=== PATIENT | female | born 1930 | race Caucasian/White ===

== ENCOUNTER 2017-08-01 11:22 | Day surgery (SDC) | payer MEDICARE ==
[~2017-08-01] VITALS: Ht 162.6 cm; Wt 55.1 kg
[~2017-08-01 11:22] MED LIST: ASPI81 PO; CEPH250C PO; DARV PO; LASI20TA PO; LOSA25TA31 PO; METO50TA PO; POTA-243 PO; ROSU20 PO
[2017-08-01] MEDS ORDERED: IOHEXOL 350 MG/ML 10 ML VIAL (for RAD DIAG) IVCONTRAST ONE (11:23)
[2017-08-01] MEDS ORDERED: IOHEXOL 350 MG/ML 100 ML BTL (for Cath Lab) OTHER ONE (11:23)
[2017-08-01 12:13] LABS: AUTOMATED NEUTROPHIL # 3.4 TH/MM3 (1.8-7.7); BASOPHIL % 0.8 % (0.0-2.0); EOSINOPHIL # 0.1 TH/MM3 (0-0.4); EOSINOPHIL % 1.7 % (0.0-4.0); HEMATOCRIT 36.1 % (35.0-46.0); HEMO FLAGS DIFF FINAL; LYMPH % 28.1 % (9.0-44.0); LYMPHOCYTE # 1.6 TH/MM3 (1.0-4.8); MEAN CELL VOLUME 95.9 FL (80.0-100.0); MEAN CORPUSCULAR HEMOGLOBIN 32.3 PG (27.0-34.0); MEAN CORPUSCULAR HGB CONC 33.6 % (32.0-36.0); MONO % 9.9 % (0.0-8.0); NEUT % 59.5 % (16.0-70.0); PLATELET COUNT 133 TH/MM3 (150-450); RED BLOOD COUNT 3.76 MIL/MM3 (4.00-5.30); RED CELL DISTRIBUTION WIDTH 14.5 % (11.6-17.2); WHITE BLOOD COUNT 5.6 TH/MM3 (4.0-11.0)
[2017-08-01 12:16] VITALS: BP 129/50; PULSE 69; RESP 18; TEMP 98.5; O2SAT 99
[2017-08-01 12:25] LABS: APTT (PATIENT) 24.5 SEC (24.3-30.1); INTERNATIONAL NORMALIZED RATIO 1.1 RATIO; PROTHROMBIN TIME - PATIENT 11.3 SEC (9.8-11.6)
[2017-08-01] MEDS ORDERED: KLOR20TA3 PO (12:26)
[2017-08-01] MEDS ORDERED: CENTCHW3 PO (12:26)
[2017-08-01] MEDS ORDERED: OCUVTAB4 PO (12:26)
[2017-08-01] MEDS ORDERED: FLAX1000 PO (12:26)
[2017-08-01] MEDS ORDERED: DONE10TA7 PO (12:26)
[2017-08-01] MEDS ORDERED: FURO20TA PO (12:26)
[2017-08-01] MEDS ORDERED: ASPI81CH6 CHEW (12:26)
[2017-08-01] MEDS ORDERED: ATOR80TA45 PO (12:26)
[2017-08-01] MEDS ORDERED: CLOP75TA PO (12:26)
[2017-08-01] MEDS ORDERED: EXEM25TA PO (12:26)
[2017-08-01] MEDS ORDERED: METO25TA3 PO (12:26)
[2017-08-01 12:32] LABS: BICARBONATE 32.7 MEQ/L (21.0-32.0); POTASSIUM 4.3 MEQ/L (3.5-5.1)
[2017-08-01] MEDS ORDERED: HEPARIN-NS/PF INJ 1,000 ML ONE (12:43)
[2017-08-01] MEDS ORDERED: NITROGLYCERIN INJ 5 ML ONE (12:48)
[2017-08-01] MEDS ORDERED: VERAPAMIL HCL 5 MG/2 ML VIAL ONE (12:49)
[2017-08-01] MEDS ORDERED: HEPARIN SODIUM - IV 10,000 UNITS/10 ML VIAL ONE (12:49)
--- NOTE | 2017-08-01 12:49 | PD.FRAIL ---
Date: Aug 01, 2017 Height: 162.56 cm Weight: 55.1 kg BMI: 20.9 Assessment Performed: Outpatient Albumin 08/01/17 11:50: Blood Urea Nitrogen 29, Creatinine 1.20, Random Glucose 92, Albumin 3.2, Calcium Level 8.9, Sodium Level 144, Potassium Level 4.3, Chloride Level 107, Carbon Dioxide Level 32.7 Pass/Fail: Fail Rodriguez Activities Daily Living Rodriguez ADL Score: Bathing(bathes self/help in single area): [place] (1), Dressing(gets/puts clothes on self): [place] (1), Toileting(goes without help): [place] ( 1), [facility] [place] (1), Continence( complete self-control): [place] (0), Feeding(self, prep by another allowed): [place] (1), Total: 5 Pass/Fail: Pass Almond Huller Strength Grasp 1: 2 Grasp 2: 2 Grasp 3: 4 Average: 3.3 Pass/Fail: Fail 15-Foot Walk 15-Foot Walk (seconds): 10.2 Pass/Fail: Fail (unsteady on feet and SOB during 15ft walk) Total Frailty Total Frailty (out of 4): 3 Frailty Index Score Reference Almond Huller Strength: BMI: <=23 Cutoff for paper sealer strength(Kg): <=17 BMI: 23.1-26 Cutoff for paper sealer strength(Kg): <=17.3 BMI: 26.1-29 Cutoff for paper sealer strength(Kg): <=18 BMI: >29 Cutoff for paper sealer strength(Kg): <=21 15-Foot Walk: Height: <=159 cm 15-Foot Walk Cutoff Time: >=7 seconds Height: >159 cm 15-Foot Walk Cutoff Time: >=6 seconds Maryam Tan RN Aug 01, 2017 12:49
[2017-08-01] MEDS ORDERED: MIDAZOLAM HCL 2 MG/2 ML VIAL ONE (13:18)
[2017-08-01 13:41] LABS: BLOOD, URINE NEG (NEG); COMMENT (UR) CULT NOT INDICATED; CULTURE IF INDICATED CULT NOT INDICATED; GLUCOSE,URINE NEG (NEG); KETONE, URINE NEG (NEG); MUCUS URINE FEW /lpf (OCC); NITRITE,URINE NEG (NEG); PH, URINE 7.5 (5.0-8.5); SQUAMOUS EPITHELIAL CELL URINE <1 /hpf (0-5); URINE COLOR YELLOW (YELLW/STRAW)
--- NOTE | 2017-08-01 14:18 | CATHPROC ---
[facility] [place] HIS Report Study Information Study Number Admission Scheduled Start Study Start [id number] Aug 01 2017 11:22AM 08/01/2017 Aug 01 2017 12:35PM [place] [facility] Cardiac Catheterization Admit Source Facility Department Other [facility] - Corporate Meeting Planner Physician and Clinical Staff Initial MD Ojeda, Frederick Mineral Mixer Usman RN, Buck RecordCecile Gardner,RT(R) (BS) Scrub Irma Zendejas,REEL SLITTER TECH2 Procedures Performed Procedure Location (Site) Vessel Name Coronary Angiograms LCA Left Coronary Coronary Angiograms RCA Right Coronary Coronary Angiograms SVG-DIAG Left Coronary Coronary Angiograms SVG-DIAG 1 Left Coronary Coronary Angiograms SVG-LAD Left Coronary Coronary Angiograms SVG-RCA Right Coronary L Heart Cath Equipment Time Central Office Repairer Supervisor Description Size Mfg Part Number Used/Scraped MYNX WRAPPING MACHINE TENDER CLOSURE DEVICE [id number] 14:00 ACCESS CLOSURE INC. FR 5 Used TAVR *[id number] TAVR TRANSDUCER, TRUWAVE [id number] 12:48 THOMAS MCCRARY * Used W/STOCKCOCK *[id number] INTRODUCER SET, 13:46 COOK INC. FR 5 [id number] *[id number] Used MICROPUNCTURE, STIFFENED [id number] *[id number] 534-521T *[id number] 534-542T *[id number] 534-570T *[id number] 12:48 [email or web address] INDUSTRIES PACK, CCL CUSTOM * Used *[id number] 12:48 SanFran[employer]O SUPPORT, ARTERIAL ADULT [id number] *[id number] Used [id number] 13:31 MEDTRONIC AL 1 DXTERITY CATHETER FR 5 Used *[id number] 12:58 MEDTRONIC JL 3.5 DXTERITY CATHETER FR 5 [id number] Used BAND, RADIAL COMPRESSION TR [id number] 13:58 [employer] MEDICAL 24CM Used SHORT 24 *[id number] 12:48 [employer] MEDICAL WIRE, 3MMJ .035 180CM 180CM Used *[id number] 12:48 NAMIC MANIFOLD, 4 PORT * Used *[id number] 12:48 NYCOMED OMNIPAQUE, 350 MG, 150ML 150ML [id number] Used [id number] 12:48 MONTERO MEDICAL BLANKET,WARM AIR CCL * Used *[id number] 13:46 TERUMO MEDICAL SHEATH, FR5 TERUMO (10CM) FR 5 Used *[id number] SHEATH, FR6 TRANSRADIAL [id number] 12:48 [employer] FR 6 Used SLENDER 10CM *[id number] Equipment Model, Serial, Lot Number and Expiration Data Description Model Number Serial Number Lot Number Expiration Date INTRODUCER SET, [id number] 06-07-2020 MICROPUNCTURE, STIFFENED History: Current Medications Medication Dosage/Unit Route Frequency Last Date/Time Taken Beta Temo Statins (any) ASA PLAVIX History: Allergies Allergy Reaction neomycin bacitracin gramicidin D polymyxin B History: Risk Factors Family History of Hypertension Dyslipidemia Previous [facility] Previous Heart Failure Premature CAD No No No No No Prior Valve Prior PCI Prior CABG Prior CABGDate Surgery No No Yes 03/31/2009 Cerebrovascular Peripheral Artery Chronic Lung On Dialysis Diabetes Disease Disease Disease No No No No No History: Stress Tests Stress or Imaging Studies Performed No History: Other Current Smoker No Labs Hgb (g/dl) Hct (%) WBC (l/cumm) Platelets (thousands) 11.60-17.00 35.00-51.00 4.00-11.00 150.00-450.00 12.1 36.1 5.6 133 Glucose (mg/dl) BUN (mg/dl) Creatinine (mg/dl) BUN:Creatinine (1:x) 74.00-106.00 7.00-18.00 0.50-1.30 10.00-20.00 92 29 1.2 24.2 Na (meq/l) K (meq/l) 136.00-145.00 3.50-5.10 144 4.3 INR (PTT:PT) 0.90-1.10 1.1 CPK-MB (ng/ML) 0.50-3.60 Not Drawn Medication Medication Total Dose (Bolus/Oral) Medication Total Dosage/Unit 1% XYLOCAINE 21 mL FENTANYL 50 mcg RADIAL COCKTAIL 1 units VERSED 2 mg Medications (Bolus/Oral) Medication Time Given Dosage/Unit Administered By Reason 1% XYLOCAINE 08/01/2017 1:16:36 PM 1 mL Mercado-Rebeca, Frederick 1 mL 1% XYLOCAINE given in lab by Jess-Rebeca Frederick in Right Radial via Subcutaneous. Ntg 200mcg Verapamil 2.5mg Heparin RADIAL COCKTAIL 08/01/2017 1:18:18 PM 1 units Mercado-Rebeca, Frederick 3000U 1 units RADIAL COCKTAIL given in lab by Rusty Frederick in Right Radial via Radial. Reason: Ntg 200 mcg Verapamil 2.5mg Heparin 3000U. FENTANYL 08/01/2017 1:19:35 PM 25 mcg Usman MORGAN, Buck 25 mcg FENTANYL given in lab by Usman MORGAN, Buck in Left Antecubital via Peripheral IV. VERSED 08/01/2017 1:20:48 PM 1 mg Usman MORGAN, Buck 1 mg VERSED given in lab by Usman MORGAN, Buck in Left Antecubital via Peripheral IV. FENTANYL 08/01/2017 1:31:07 PM 12.5 mcg Usman MORGAN, Buck 12.5 mcg FENTANYL given in lab by Usman MORGAN, Buck in Left Antecubital via Peripheral IV. VERSED 08/01/2017 1:33:39 PM 1 mg Usman MORGAN, Buck 1 mg VERSED given in lab by Usman MORGAN, Buck in Left Antecubital via Peripheral IV. 1% XYLOCAINE 08/01/2017 1:46:31 PM 20 mL Jess-Frida Josero 20 mL 1% XYLOCAINE given in lab by Frederick Ojeda in Right Groin via Subcutaneous. FENTANYL 08/01/2017 1:47:40 PM 12.5 mcg Usman MORGAN, Buck 12.5 mcg FENTANYL given in lab by Buck Mary RN in Left Antecubital via Peripheral IV. Medication (Drip) Medication Time Given Dosage/Unit Concentration/Unit Diluent (ml) Solution 08/01/2017 12:35:16 IV Solutions 0 mL (IV) 500 NaCl .9 PM IV Solutions given in lab by Buck Mary RN in Left Antecubital via Peripheral IV. Pump/Drip Flow = 30 ml/hr using NaCl .9. Initial Case Assessment Cardiovascular HR Rhythm NIBP 71 reg 114/34 Edema Present Skin color Skin None Normal Warm Dry Circulatory - Right Pulses Dorsalis Pedis Femoral Radial 1 1 1 Scale (0,1,2,3,4,d) Scale (0,1,2,3,4,d) Circulatory - Lower Extremities Color Lower Right Color Lower Left Normal Normal Neurological State Oriented to time-place- Alert Moves all extremities person Respiration - General Respiration Rate SpO2 (%) (B/min) 14 99 Chronological Log Time Study Chronological Log 12:34:55 Patient arrived via Bed. 12:35:05 Patient Name, D.O.B, / Armband Verified By Costa. 12:35:06 Consent signed by the physician and the patient and verified by the Corporate Meeting Planner staff. 12:35:07 Pre-op and post- op instructions given; patient acknowledges understanding of instructions. 12:35:09 Patient has been NPO for More than 6Hrs. 12:35:10 Skin Breakdown - bruising on bilateral buttox, red blanched coccyx 12:35:12 Patient Warmer Placed on the Table. 12:35:15 A # 20 IV was noted in the Antecubital (left). Grade = 0 IV Solutions given in lab by Buck Mary RN in Left Antecubital via Peripheral IV. Pump/Drip F low = 30 ml/hr using NaCl 12:35:16 .9. 12:35:16 History and physical on the chart or being dictated. 12:46:41 Reference ECG taken Vitals capture started with the following parameters, Patient=Adult, Interval=5 min, Initial Pr jsjcdz=031 mmHg, 12:47:05 Deflation Rate=5 mmHg, Cuff placed on Left Arm 12:47:43 HR=72 bpm, KUFV=502/34 mmhg, SpO2=99.0 %, Resp=18 B/min, Pain=0, Kristopher=10, Sal=2 Assessment: Initial Case, HR=71 BPM, Rhythm=reg, NNWU=879/34 mmhg, Edema=None, Color=Normal, Sk in = Warm, Dry Right Pulses: Cooper Ped=1, Femoral=1, Radial=1 12:51:09 Lower Right Extremities: Color=Normal Lower Left Extremities: Color=Normal Neurological: State=Alert, Ox3, BYRD Respiration: Resp=14 B/min, SpO2=99 % 12:52:10 Right Radial and right groin prepped with 2% chlorhexidine, and draped after a 3 min. waiti ng time. 12:52:43 HR=69 bpm, WKQO=008/37 mmhg, SpO2=99.0 %, Resp=15 B/min, Pain=0, Kristopher=10, Sal=2 12:56:27 Pressure channel 1 zeroed. 12:57:39 HR=70 bpm, JTYB=670/33 mmhg, SpO2=99.0 %, Resp=14 B/min, Pain=0, Kristopher=10, Sal=2 12:59:03 paged 13:02:41 HR=71 bpm, RNGO=179/35 mmhg, SpO2=99.0 %, Resp=14 B/min, Pain=0, Kristopher=10, Sal=2 13:04:38 MD responded 13:07:40 HR=71 bpm, NOEC=251/41 mmhg, SpO2=98.0 %, Resp=17 B/min, Pain=0, Kristopher=10, Sal=2 13:12:43 HR=71 bpm, AYCM=915/39 mmhg, SpO2=99.0 %, Resp=17 B/min, Pain=0, Kristopher=10, Sal=2 13:13:44 MD arrived Time Out. Correct patient, correct procedure, correct physician, power injector not loaded with contrast with surgical 13:16:21 team present. Time Out Concurred by MD and individual staff in procedure. 13:16:31 Case Start 13:16:36 1 mL 1% XYLOCAINE given in lab by Frederick Ojeda in Right Radial via Subcutaneous. 13:17:43 Access site was right Radial Artery. A SHEATH, FR6 TRANSRADIAL SLENDER 10CM FR 6 was advanced into the Radial (right) using the Perc utaneous 13:17:56 technique. 1 units RADIAL COCKTAIL given in lab by Frederick Ojeda in Right Radial via Radial. Reason: N tg 200mcg Verapamil 13:18:18 2.5mg Heparin 3000U. 13:18:27 HR=76 bpm, TCPA=111/36 mmhg, SpO2=99.0 %, Resp=32 B/min, Pain=0, Kristopher=10, Sal=2 A JR 4.0 INFINITI CATHETER FR 5 was advanced over a wire. OMNIPAQUE, 350 MG, 150ML 150ML was us ed for 13:19:34 injections. 13:19:35 25 mcg FENTANYL given in lab by Buck Mary RN in Left Antecubital via Peripheral IV. Recorded Pressure: Ao, HR=72, Condition=Condition 1 13:20:20 (Aorta) Ao 106/34/64 13:20:48 1 mg VERSED given in lab by Buck Mary RN in Left Antecubital via Peripheral IV. 13:21:07 The RCA was injected and visualized at various angles. OMNIPAQUE, 350 MG, 150ML 150ML used . After removing the current catheter a JL 3.5 DXTERITY CATHETER FR 5 was advanced over a WIRE, 3 MMJ .035 180CM 13:22:42 180CM. 13:22:43 HR=74 bpm, NIBP=94/34 mmhg, SpO2=95.0 %, Resp=18 B/min, Pain=0, Kristopher=10, Sal=2 13:24:49 The LCA was injected and visualized at various angles. OMNIPAQUE, 350 MG, 150ML 150ML used . After removing the current catheter a MPA-2 INFINITI CATHETER FR 5 was advanced over a WIRE, 3M MJ .035 180CM 13:26:07 180CM. 13:27:16 The SVG-DIAG was injected and visualized at various angles. OMNIPAQUE, 350 MG, 150ML 150ML used. 13:27:40 HR=74 bpm, NIBP=89/33 mmhg, SpO2=96.0 %, Resp=22 B/min, Pain=0, Kristopher=10, Sal=2 13:27:45 The SVG-RCA was injected and visualized at various angles. OMNIPAQUE, 350 MG, 150ML 150ML u sed. 13:31:07 12.5 mcg FENTANYL given in lab by Buck Mary RN in Left Antecubital via Peripheral IV. After removing the current catheter a AL 1 DXTERITY CATHETER FR 5 was advanced over a WIRE, 3MM J .035 180CM 13:31:09 180CM. 13:32:39 HR=77 bpm, NIBP=89/39 mmhg, SpO2=96.0 %, Resp=33 B/min, Pain=0, Kristopher=10, Sal=2 13:33:39 1 mg VERSED given in lab by Buck Mary RN in Left Antecubital via Peripheral IV. After removing the current catheter a RCB INFINITI CATHETER FR 5 was advanced over a WIRE, 3MMJ .035 180CM 13:33:54 180CM. 13:36:00 The SVG-LAD was injected and visualized at various angles. OMNIPAQUE, 350 MG, 150ML 150ML u sed. After removing the current catheter a AR MOD INFINITI CATHETER FR 5 was advanced over a WIRE, 3 MMJ .035 180CM 13:37:04 180CM. 13:37:40 HR=75 bpm, SFBE=429/39 mmhg, SpO2=92.0 %, Resp=13 B/min, Pain=0, Kristopher=10, Sal=2 Recorded Pressure: LV, HR=76, Condition=Condition 1 13:42:38 (Left Ventricle) LV 161/7/21 13:42:43 HR=75 bpm, NIBP=89/41 mmhg, SpO2=91.0 %, Resp=17 B/min, Pain=0, Kristopher=10, Sal=2 Recorded Pressure: LV, Ao, HR=75, Condition=Condition 1 13:42:50 (Left Ventricle) LV 160/5/21, (Aorta) Ao 88/31/53 After removing the current catheter a MPA-2 INFINITI CATHETER FR 5 was advanced over a WIRE, 3M MJ .035 180CM 13:43:54 180CM. 13:45:53 Catheter was removed 13:46:01 Unable to engage graft. Moving to groin access. 13:46:31 20 mL 1% XYLOCAINE given in lab by Frederick Ojeda in Right Groin via Subcutaneous. 13:47:40 HR=74 bpm, NIBP=87/38 mmhg, SpO2=97.0 %, Resp=16 B/min, Pain=0, Kristopher=10, Sal=2 13:47:40 12.5 mcg FENTANYL given in lab by Buck Mary RN in Left Antecubital via Peripheral IV. 13:48:24 Access site was Right Femoral Artery. A INTRODUCER SET, MICROPUNCTURE, STIFFENED FR 5 was advanced into the Fem Art (right) using the 13:48:33 Percutaneous technique. A SHEATH, FR5 TERUMO (10CM) FR 5 was exchanged in the Fem Art (right). This was necessary in or soy to 13:48:39 accomodate a larger catheter. A MPA-2 INFINITI CATHETER FR 5 was advanced over a wire. OMNIPAQUE, 350 MG, 150ML 150ML was use d for 13:49:10 injections. 13:50:09 Catheter was removed A AL 1 DXTERITY CATHETER FR 5 was advanced over a wire. OMNIPAQUE, 350 MG, 150ML 150ML was used for 13:50:13 injections. 13:51:01 The SVG-DIAG and ramus was injected and visualized at various angles. contrast used. 13:52:41 HR=73 bpm, NIBP=93/39 mmhg, SpO2=96.0 %, Resp=22 B/min, Pain=0, Kristopher=10, Sal=2 13:56:57 Catheter was removed 13:57:42 HR=74 bpm, NIBP=88/32 mmhg, SpO2=97.0 %, Resp=29 B/min, Pain=0, Kristopher=10, Sal=2 13:59:02 MYNX WRAPPING MACHINE TENDER CLOSURE DEVICE TAVR FR 5 placement in the Fem Art (right) 14:01:03 Case End 14:01:11 DOCU called. Spoke to Myron 14:02:43 HR=71 bpm, NIBP=95/39 mmhg, SpO2=97.0 %, Resp=29 B/min, Pain=0, Kristopher=10, Sal=2 14:06:21 Pressure applied to access site. 14:07:30 No case complications noted. 14:07:34 Bedside Report will be given. 14:07:36 Implantable Device card placed in patient's chart. 14:07:39 A Left Heart Cath was performed. 14:07:44 HR=72 bpm, NIBP=97/40 mmhg, SpO2=97.0 %, Resp=19 B/min, Pain=0, Kristopher=10, Sal=2 14:10:00 Sterile dressing applied to site Radial Compression Device Used. 12 mLs of air placed in BAND, RADIAL COMPRESSION TR SHORT 24 24 CM. Affected 14:12:10 hand 97 % O2 saturation. 14:12:45 HR=75 bpm, YWRM=145/32 mmhg, SpO2=99.0 %, Resp=32 B/min, Pain=0, Kristopher=10, Sal=2 14:12:51 Vitals capture stopped. 14:16:32 Patient moved to stretcher End Study - Contrast Media Used In Study Contrast Total Opened (mL) Total Used (mL) Total Wasted (mL) Omnipaque 100 100 0 End Study - Maximum Contrast Load Max Contrast Load (mL) 229.5 End Study - Radiation Exposure Fluoro Time (minutes) 18.8 End Study - Sheaths Sheaths Pulled By Sheath Hold Time (min) Mercado-Rebeca, Frederick End Study - Patient Disposition Complications Transferred To Interventional Outcome No Corporate Meeting Planner Holding No attempt made
--- NOTE | 2017-08-01 17:22 | RADRPT ---
EXAM DATE/TIME: 08/01/2017 16:52 [facility] COMPARISON: No previous studies available for comparison. INDICATIONS : Evaluate for pneumonia. Preoperative chest xray- TAVR. MEDICAL HISTORY : None. SURGICAL HISTORY : Pacemaker. CABG. ENCOUNTER: Subsequent ACUITY: 1 day PAIN SCORE: 0/10 LOCATION: Bilateral chest FINDINGS: Lungs are hyperinflated. There is diffuse chronic appearing interstitial lung disease. Increased dens ity is seen throughout the right lung base. Heart is mildly enlarged. There is evidence of previous open heart surgery. Cardiac pacemaker is in p lace. CONCLUSION: 1. COPD. 2. Right basilar airspace disease. 3. Mild cardiomegaly status post CABG. 4. Cardiac pacemaker. Davi Grande MD on August 01, 2017 at 17:18 Board Certified Radiologist. This report was verified electronically.
--- NOTE | 2017-08-01 18:32 | MA ---
cc: MANJIT TROY DATE: 08/01/2017 DATE OF : 1930 PROCEDURE PERFORMED 1. Left heart catheterization. 2. Selective right and left coronary angiography preformed. 3. Selective saphenous vein graft angiography. 4. Left ventricular hemodynamics. INDICATION Preoperative evaluation for severe symptomatic aortic stenosis approach right transradial and right transfemoral. DESCRIPTION OF PROCEDURE Consent signed. The patient was brought into the cardiac optical laboratory mechanic in fasting state. The right wrist was prepped and draped in sterile fashion using 1% lidocaine for local anesthesia a micropuncture kit a 6-Georgian sheath was inserted into the right radial artery. Antispasmodic cocktail given then selective right and left coronary angiography was performed with a JR-4 and JL- 3.5 diagnostic catheters. Angiography was taken in multiple views that was followed by angiography of the saphenous vein graft. We engaged this at the right saphenous vein groin with multipurpose catheter. There was some difficulty engaging the other grafts given the coming from the radial approach for which we changed to a transfemoral port for this and using 1% lidocaine for local anesthesia a micropuncture kit a 5-Georgian she was inserted in right common femoral artery. Then selective graft angiography was performed with an AL-1 diagnostic catheters. Angiography was taken in multiple views. The patient tolerated the procedure well without complications. Estimated blood loss less than 10 cc, total contrast was 80 cc. The right groin access site was closed with a Minx and the wrist access site was closed with a TR band. RESULTS LEFT VENTRICLE The left ventricular pressure was 160/5 with LVEDP of 21. The aortic pressure was 88/31 with a mean of 53 with there was a significant gradient upon pullback from the left ventricle to aorta and consistent with severe aortic stenosis. ANGIOGRAPHIC RESULTS 1. Right coronary artery; Right coronary artery is a dominant vessel giving off the PDA is tortuous as minimal luminal irregularities and has SMILEY-III flow and no significant obstructive coronary artery disease. In the distal right coronary artery see and competitive flow coming from the graft. 2. Left main; Lung patent long patent is giving off the left circumflex artery, ramus and LAD vessel. 3. The left anterior descending is a transapical vessel. It has no significant obstructive lesions of the mid to proximal to midportion of the vessel is tortuous and his recent competitive flow four grafts. 4. The left circumflex artery is small and patent. 5. The ramus vessel is of prominent size is has minimal luminal irregularities and received blood flow from S7 completed plus of shortness of sustained graft and the sound that the LAD is giving off a high diagonal which is it has a lesion on the proximal segment of 70%. Graft angiography. 7. SVG to PDA is patent. 8. SVG to posterior lateral branch patent. 9. SVG Y graft to ramus and LAD patent. CONCLUSION Severe [place] vessel CAD with 4/4 graft patent to severe symptomatic aortic stenosis three elevated LVEDP. RECOMMENDATIONS The patient will go to go to for post cath care. She will need IV hydration the continue aggressive medical management for secondary prevention of CAD, Continue Aortic Stenosis work Up workup. Thank you. MD MARQUIS Rios/vijay /2:08 PM /5:38 PM [facility]
--- NOTE | 2017-08-02 10:15 | RADRPT ---
EXAM DATE/TIME: 08/01/2017 14:59 [facility] COMPARISON: No previous studies available for comparison. INDICATIONS : Evaluation for trans-aortic valve replacement. IV CONTRAST: 99 cc Omnipaque 350 (iohexol) IV RADIATION DOSE: 44.34 CTDIvol (mGy) MEDICAL HISTORY : Carcinoma, breast. Cardiovascular disease SURGICAL HISTORY : Mastectomy, left. ENCOUNTER: Initial ACUITY: 1 day PAIN SCALE: 0/10 LOCATION: chest TECHNIQUE: Volumetric scanning was performed using a multi-row detector CT scanner. The data was post processed with a variety of visualization algorithms including full volume maximum intensity projection, multi -planar sliding thin slab reformation, curved planar reformation, and surface rendering techniques. Using automated exposure control and adjustment of the mA and/or kV according to patient size, radiat ion dose was kept as low as reasonably achievable to obtain optimal diagnostic quality images. DIC OM format image data is available electronically for review and comparison. FINDINGS: CARDIAC: The coronary system is right dominant. Multivessel CABG with the graft emanating from the ascending t horacic aorta. There is a bypass to the distal RCA, distal LAD and a bifurcated bypass to the diagona l branches. Circumflex appears to be diminutive. AORTIC ROOT/VALVE: 3 aortic cusps are present with regional calcification. The aortic root measures 2.7 cm. Mid thoracic aorta measures 2.5 cm with no calcifications. THORACIC AORTA: Bovine configuration of the arch. No evidence of aneurysm, mural thrombus, dissection, mural calcifi cation, or stenosis. ABDOMINAL AORTA: No evidence of aneurysm, mural thrombus, dissection or stenosis. Scattered mural calcification CELIAC ARTERY: Celiac artery shows a high grade ostial stenosis but is otherwise patent. SMA: Superior mesenteric artery is widely patent. RIGHT RENAL ARTERY: Main and accessory right middle artery. Both are patent. LEFT RENAL ARTERY: Left renal artery is widely patent. RIGHT COMMON ILIAC: No evidence of aneurysm, mural thrombus, dissection, mural calcification, or stenosis. The common fe moral measures 7 mm. LEFT COMMON ILIAC: No evidence of aneurysm, mural thrombus, dissection, mural calcification, or stenosis. The common fe moral measures 6 mm. THORAX: Patient appears to have a right mastectomy with augmentation. Bilateral pleural effusions with mild a telectatic changes. Groundglass nodular density medially in the right apex. ABDOMEN: Cholelithiasis. Mild nodular appearance of the liver may represent early cirrhosis. Diverticular dise ase most prominent in the sigmoid colon without diverticulitis PELVIS: Pelvic viscera is intact. Wound packing or compression dressing over the right inguinal region CONCLUSION: 1. Path to the ascending thoracic aorta is widely patent with no significant stenosis. Both common fe moral arteries are patent and fairly symmetric. 2. Cholelithiasis. 3. Coronary artery bypass with graft emanating from the ascending thoracic aorta and anastomosing to the distal LAD, distal RCA and a bifurcated graft to the diagonal branches. Circumflex is diminutive. 4. Diverticular disease of the descending and sigmoid colon, most severe in the region of the sigmoid . Jovany Chatman MD on August 02, 2017 at 9:52 Board Certified Radiologist. This report was verified electronically.
--- NOTE | 2017-08-03 12:25 | EKG ---
Date Performed: 08/01/2017 Time Performed: 12:07:26 PTAGE: 87 years EKG: Sinus rhythm with 1st degree A-V block. Possible left atrial abnormality Left bundle branch block Abnormal ECG PREVIOUS TRACING : 09/22/2008 17.33 DOCTOR: Makenna An Interpretating Date/Time 08/03/2017 12:23:58
== END 2017-08-01 17:44 | disposition home or self-care (01) ==
LOC: HDOC 11:22 → HDIC 11:25 → HDOC 17:44
PROVIDERS: ATTEND Radiology Vascular & Interventional Radiology
DX: I25.10 Atherosclerotic heart disease of native coronary artery without angina pectoris (principal); I35.0 Nonrheumatic aortic (valve) stenosis; J44.9 Chronic obstructive pulmonary disease, unspecified; K80.20 Calculus of gallbladder without cholecystitis without obstruction; Z95.0 Presence of cardiac pacemaker; Z90.12 Acquired absence of left breast and nipple; Z85.3 Personal history of malignant neoplasm of breast; Z95.1 Presence of aortocoronary bypass graft; Z01.818 Encounter for other preprocedural examination; Z79.82 Long term (current) use of aspirin
CPT/HCPCS: 71010; 74174; 80048; 81001; 82040; 85025; 85610; 85730; 86077; 86850; 86870; 86880; 86900; 86901; 86902; 87641; 93005; 93459; 94010; 99152; 99153; C1760; C1769; C1893; G0269; J1644; J2250; J3010; Q9967

== ENCOUNTER 2017-08-30 15:31 | Inpatient (IN) | payer MEDICARE ==
[~2017-08-30] VITALS: Ht 162.6 cm; Wt 53.0 kg
[~2017-08-30 15:31] MED LIST changes: -ASPI81 PO; +ASPI81CH6 CHEW; +ATOR80TA45 PO; +CENTCHW3 PO; -CEPH250C PO; +CLOP75TA PO; -DARV PO; +DONE10TA7 PO; +EXEM25TA PO; +FLAX1000 PO; +FURO20TA PO; +KLOR20TA3 PO; -LASI20TA PO; -LOSA25TA31 PO; +METO25TA3 PO; -METO50TA PO; +OCUVTAB4 PO; -POTA-243 PO; -ROSU20 PO
[2017-08-30 15:33] VITALS: BP 116/50; PULSE 77; RESP 16; TEMP 99.2; O2SAT 99
--- NOTE | 2017-08-30 17:43 | PD ---
HPI Chief Complaint: Respiratory Distress Time Seen by Provider: 17:23 Travel History International Travel<30 days: No Contact w/Intl Traveler<30days: No Traveled to known affect area: No History of Present Illness HPI 87yo F presented to the ED for increased exertional SOB. Pt has a TAVR scheduled for 09/04/17, and her son reports that he is concerned about her CHF status due to her increasing exertional dyspnea. He states that he weighs her everyday and has noticed that she has gained several pounds. Son reports that she sleeps on several pillows at night or in a recliner, and cannot walk more than 5m without becoming SOB. Pt has significant medical history of CHF, aortic stenosis, breast cancer and dementia. Pt denies any chest pain, palpitations, lightheadness or dizziness. Pt was a poor historian due to her dementia; her son gave most of the HPI stated above. Modifying Factors: None Associated Signs & Symptoms: Worsening shortness of breath, dyspnea on exertion , gaining weight Risk Factors: History of cardiac issues, CHF, valvular heart disease PFSH Past Medical History Blood Disorders: No Anxiety: No Depression: No Cancer: Yes (R & L BREAST, LEFT MASECTOMY) Cardiovascular Problems: Yes High Cholesterol: Yes Chemotherapy: No Chest Pain: No Diabetes: No Gastrointestinal Disorders: No Glaucoma: No Hepatitis: No Hiatal Hernia: No Hypertension: Yes Immune Disorder: No Neurologic: No Psychiatric: No Reproductive: No Respiratory: No Integumentary: No Myocardial Infarction: Yes Radiation Therapy: No Thyroid Disease: No Past Surgical History AICD: No Arteriovenous Shunt: No Insulin Pump: No Joint Replacement: No Pacemaker: No Thoracic Surgery: Yes (CABG) Social History Alcohol Use: Yes (1 vodka/day) Tobacco Use: No Substance Use: Yes Allergies-Medications (Allergen,Severity, Reaction): Coded Allergies: bacitracin (Unverified Allergy, Unknown, 08/30/17) gramicidin D (Unverified Allergy, Unknown, 08/30/17) neomycin (Unverified Allergy, Unknown, 08/30/17) polymyxin B (Unverified Allergy, Unknown, 08/30/17) Reported Meds & Prescriptions Reported Meds & Active Scripts Active Reported Metoprolol Tartrate 25 Mg Tab 12.5 Mg PO BID Klor-Con M20 (Potassium Chloride Microencaps) 20 Meq Tab 20 Meq PO DAILY Furosemide 20 Mg Tab 20 Mg PO DAILY Flaxseed Oil (Flaxseed (Linseed)) 1,000 Mg Cap Unknown Dose PO DAILY Exemestane 25 Mg Tab 25 Mg PO DAILY Donepezil 10 Mg Tab 10 Mg PO HS Clopidogrel (Clopidogrel Bisulfate) 75 Mg Tab 75 Mg PO DAILY Centrum Silver (Multiple Vitamins W/ Minerals) 400 Mcg-250 Mcg Chw Unknown Dose PO DAILY Atorvastatin (Atorvastatin Calcium) 80 Mg Tab 80 Mg PO HS Aspirin Low Dose (Aspirin) 81 Mg Chew 81 Mg CHEW DAILY Review of Systems Except as stated in HPI: all other systems reviewed are Neg Physical Exam Exam Limitations: Poor Historian Narrative GENERAL: 87yo W/F that is well-developed. She is alert and oriented to person only. Poor historian due to dementia. SKIN: Warm and dry. HEAD: Atraumatic. Normocephalic. NECK: Trachea midline. Positive JVD. CARDIOVASCULAR: Regular rate and rhythm. 4/6 holosystolic ejection murmur. RESPIRATORY: No accessory muscle use. Left basilar rales and decreased breath sounds on R. GASTROINTESTINAL: Abdomen soft, non-tender, nondistended. Hepatic and splenic margins not palpable. MUSCULOSKELETAL: Extremities without clubbing, cyanosis, or edema. No obvious deformities. NEUROLOGICAL: Awake and alert. No obvious cranial nerve deficits. Motor grossly within normal limits. Normal speech. PSYCHIATRIC: Appropriate mood and affect; insight and judgment normal. Data Data Last Documented VS Vital Signs Date Time Temp Pulse Resp B/P (MAP) Pulse Ox O2 Delivery O2 Flow Rate FiO2 08/30/17 19:12 75 16 100 Nasal Cannula 2.00 08/30/17 19:11 105/50 (68) 08/30/17 15:33 99.2 Orders Orders Complete Blood Count With Diff (08/30/17 15:54) Basic Metabolic Panel (Bmp) (08/30/17 15:54) B-Type Natriuretic Peptide (08/30/17 15:54) Act Partial Throm Time (Ptt) (08/30/17 15:54) Prothrombin Time / Inr (Pt) (08/30/17 15:54) Magnesium (Mg) (08/30/17 15:54) Ckmb (Isoenzyme) Profile (08/30/17 15:54) Troponin I (08/30/17 15:54) Electrocardiogram (08/30/17 15:54) Chest, Pa & Lat (08/30/17 15:54) Furosemide Inj (Lasix Inj) (08/30/17 18:30) CKMB (08/30/17 17:45) CKMB% (08/30/17 17:45) Admit Order (Ed Use Only) (08/30/17 19:49) Labs Laboratory Tests Test 08/30/17 17:45 White Blood Count 8.2 TH/MM3 Red Blood Count 4.10 MIL/MM3 Hemoglobin 12.9 GM/DL Hematocrit 38.7 % Mean Corpuscular Volume 94.3 FL Mean Corpuscular Hemoglobin 31.4 PG Mean Corpuscular Hemoglobin Concent 33.3 % Red Cell Distribution Width 14.5 % Platelet Count 129 TH/MM3 Mean Platelet Volume 10.0 FL Neutrophils (%) (Auto) 70.4 % Lymphocytes (%) (Auto) 18.2 % Monocytes (%) (Auto) 10.2 % Eosinophils (%) (Auto) 0.7 % Basophils (%) (Auto) 0.5 % Neutrophils # (Auto) 5.8 TH/MM3 Lymphocytes # (Auto) 1.5 TH/MM3 Monocytes # (Auto) 0.8 TH/MM3 Eosinophils # (Auto) 0.1 TH/MM3 Basophils # (Auto) 0.0 TH/MM3 CBC Comment DIFF FINAL Differential Comment Prothrombin Time 11.4 SEC Prothromb Time International Ratio 1.1 RATIO Activated Partial Thromboplast Time 22.6 SEC Blood Urea Nitrogen 38 MG/DL Creatinine 1.45 MG/DL Random Glucose 103 MG/DL Calcium Level 8.9 MG/DL Magnesium Level 2.3 MG/DL Sodium Level 143 MEQ/L Potassium Level 4.8 MEQ/L Chloride Level 106 MEQ/L Carbon Dioxide Level 30.8 MEQ/L Anion Gap 6 MEQ/L Estimat Glomerular Filtration Rate 34 ML/MIN Total Creatine Kinase 723 U/L Creatine Kinase MB 6.3 NG/ML Creatine Kinase MB % 0.9 % Troponin I 0.12 NG/ML B-Type Natriuretic Peptide 1767 PG/ML MDM Medical Decision Making Medical Screen Exam Complete: Yes Emergency Medical Condition: Yes Medical Record Reviewed: Yes Interpretation(s) EKG shows sinus rhythm at a rate of 70 bpm with a left bundle branch block pattern unchanged from previous EKG. Laboratory Tests Test 08/30/17 17:45 Platelet Count 129 TH/MM3 (150-450) Neutrophils (%) (Auto) 70.4 % (16.0-70.0) Monocytes (%) (Auto) 10.2 % (0.0-8.0) Activated Partial Thromboplast Time 22.6 SEC (24.3-30.1) Blood Urea Nitrogen 38 MG/DL (7-18) Creatinine 1.45 MG/DL (0.50-1.00) Estimat Glomerular Filtration Rate 34 ML/MIN (>89) Total Creatine Kinase 723 U/L (26-192) Creatine Kinase MB 6.3 NG/ML (0.5-3.6) Troponin I 0.12 NG/ML (0.02-0.05) B-Type Natriuretic Peptide 1767 PG/ML (0-100) Last 24 hours Impressions Chest X-Ray 08/30/17 1554 Signed Impressions: Service Date/Time: Wednesday, August 30, 2017 16:08 - CONCLUSION: 1. Mild positive fluid balance. 2. Small bilateral pleural effusions and associated bilateral lower lobe compressive atelectasis. Rogelio Fountain MD Differential Diagnosis CHF exacerbation versus COPD exacerbation versus pneumonia Narrative Course Chest x-ray and lab work would be indicative of underlying exacerbation of CHF. Lasix was given in the ER. Planning to admit the patient for further treatment. Case was discussed with Dr. Ramos for admission. Diagnosis Primary Impression: CHF exacerbation Admitting Information Admitting Physician Requests: Admit Tory Resendiz MD Aug 30, 2017 17:43
--- NOTE | 2017-08-30 17:52 | RADRPT ---
EXAM DATE/TIME: 08/30/2017 16:08 [facility] COMPARISON: CHEST SINGLE AP, August 01, 2017, 16:52. INDICATIONS : Short of breath. MEDICAL HISTORY : Congestive heart failure. SURGICAL HISTORY : Pacemaker. CABG. ENCOUNTER: Initial ACUITY: 4 - 6 days PAIN SCORE: 0/10 LOCATION: Bilateral chest FINDINGS: Post surgical features of prior median sternotomy and heart surgery. Dual-lead pacemaker in place. Sm all bilateral pleural effusions and associated airspace disease at the lung bases. Mild diffuse inter stitial prominence. Cardiomediastinal contours are within normal limits. Remainder of the exam is unc hanged. CONCLUSION: 1. Mild positive fluid balance. 2. Small bilateral pleural effusions and associated bilateral lower lobe compressive atelectasis. Rogelio Fountain MD on August 30, 2017 at 17:49 Board Certified Radiologist. This report was verified electronically.
[2017-08-30 18:04] LABS: AUTOMATED NEUTROPHIL # 5.8 TH/MM3 (1.8-7.7); BASOPHIL % 0.5 % (0.0-2.0); EOSINOPHIL # 0.1 TH/MM3 (0-0.4); EOSINOPHIL % 0.7 % (0.0-4.0); HEMATOCRIT 38.7 % (35.0-46.0); HEMOGLOBIN 12.9 GM/DL (11.6-15.3); LYMPH % 18.2 % (9.0-44.0); LYMPHOCYTE # 1.5 TH/MM3 (1.0-4.8); MEAN CELL VOLUME 94.3 FL (80.0-100.0); MEAN CORPUSCULAR HEMOGLOBIN 31.4 PG (27.0-34.0); MEAN CORPUSCULAR HGB CONC 33.3 % (32.0-36.0); MONO % 10.2 % (0.0-8.0); MONOCYTE # 0.8 TH/MM3 (0-0.9); NEUT % 70.4 % (16.0-70.0); PLATELET COUNT 129 TH/MM3 (150-450); RED CELL DISTRIBUTION WIDTH 14.5 % (11.6-17.2); WHITE BLOOD COUNT 8.2 TH/MM3 (4.0-11.0)
[2017-08-30 18:23] LABS: INTERNATIONAL NORMALIZED RATIO 1.1 RATIO; PROTHROMBIN TIME - PATIENT 11.4 SEC (9.8-11.6)
[2017-08-30 18:26] LABS: BICARBONATE 30.8 MEQ/L (21.0-32.0); CALCIUM 8.9 MG/DL (8.5-10.1); CREATININE 1.45 MG/DL (0.50-1.00); MAGNESIUM 2.3 MG/DL (1.5-2.5)
[2017-08-30 18:30] LABS: TROPONIN I 0.12 NG/ML (0.02-0.05)
[2017-08-30] MEDS ORDERED: FUROSEMIDE 20 MG/2 ML VIAL IV PUSH ONE (18:30)
[2017-08-30 19:11] VITALS: BP 105/50; PULSE 76; RESP 16; O2SAT 100
[2017-08-30] MEDS ORDERED: SENNOSIDES 8.6 MG TAB PO PRN (20:00)
[2017-08-30] MEDS ORDERED: ACETAMINOPHEN/HYDROcodone 325 MG/5 MG TAB PO PRN (20:00)
[2017-08-30] MEDS ORDERED: LACTULOSE SYRUP 20 GM/30 ML CUP PO PRN (20:00)
[2017-08-30] MEDS ORDERED: MAGNESIUM HYDROXIDE SUSP 30 ML CUP PO PRN (20:00)
[2017-08-30] MEDS ORDERED: ACETAMINOPHEN 325 MG TAB PO PRN (20:00)
[2017-08-30] MEDS ORDERED: MORPHINE SULFATE 2 MG/ML INJ IV PUSH PRN (20:00)
[2017-08-30] MEDS ORDERED: SODIUM CHLORIDE 0.9% FLUSH 10 ML FLUSH IV FLUSH PRN (20:00)
[2017-08-30] MEDS ORDERED: ONDANSETRON HCL 4 MG/2 ML VIAL IVP PRN (20:00)
[2017-08-30] MEDS ORDERED: BISACODYL 10 MG SUPP RECTAL PRN (20:00)
--- NOTE | 2017-08-30 20:00 | HHI.HP ---
[facility]Staff Ad[facility] Diagnosis CHF exacerbation Diagnoses: (1) CHF (congestive heart failure) Diagnosis: Principal (2) Elevated troponin Diagnosis: Principal (3) Renal insufficiency Diagnosis: Principal (4) Severe aortic stenosis Diagnosis: Principal Travel History International Travel<30 Days: No Contact w/Intl Traveler <30 Da: No Traveled to Known Affected Are: No History of Present Illness This is an 87-year-old female with a PMH of Breast CTA, HTN, Hyperlipidemia, CHF (Unknown EF), CAD and Severe Aortic Stenosis who was brought to the ER by Son secondary to SOB x3 days. Much of the history provided by Son as pt poor historian. Son states pt having SOB, worse w/ exertion, severe, alleviated by rest. Recent Cardiac Cath 08/01/[address] Mercado w/ severe [place] vessel disease, patent grafts and severe aortic stenosis. Per Son, pt scheduled for Aortic Valve Replacement on Saturday. On arrival, BP 116/50, HR 77, O2 sat 99% on RA , Temp 99.2. CBC unremarkable except for platelets 129, previously 133 on 08/01. Creatinine 1.45, producing 1.20 on 08/01/17. Troponin 0.12. BNP 1767. INR 1.1. CXR with mild positive fluid balance, small bilateral pleural effusions. S/p Lasix 20mg IV Review of Systems Except as stated in HPI: all other systems reviewed are Neg ROS: 14 point review of systems otherwise negative. Past Family Social History Past Medical History PMH: Breast CTA, HTN, Hyperlipidemia, CHF (Unknown EF), CAD and Severe Aortic Stenosis Past Surgical History PAST SURGICAL HISTORY: CABG Allergies: Coded Allergies: bacitracin (Unverified Allergy, Unknown, 08/30/17) gramicidin D (Unverified Allergy, Unknown, 08/30/17) neomycin (Unverified Allergy, Unknown, 08/30/17) polymyxin B (Unverified Allergy, Unknown, 08/30/17) Family History PAST FAMILY HISTORY: Reviewed. No h/o DM or CAD Social History PAST SOCIAL HISTORY: One drink per day. Negative for tobacco or drugs. Physical Exam Vital Signs Vital Signs Date Time Temp Pulse Resp B/P (MAP) Pulse Ox O2 Delivery O2 Flow Rate FiO2 08/30/17 19:12 75 16 100 Nasal Cannula 2.00 08/30/17 19:11 76 16 105/50 (68) 100 08/30/17 17:38 68 16 93 Room Air 08/30/17 15:33 99.2 77 16 116/50 (72) 99 Physical Exam PE: GENERAL: Elderly white female in no acute distress, flat affect. Son at bedside. HEENT: PERRLA, EOMI. No scleral icterus or conjunctival pallor. No lid lag or facial droop. CARDIOVASCULAR: Regular rate and rhythm. No obvious murmurs to auscultation. No chest tenderness to palpation. RESPIRATORY: No obvious rhonchi or wheezing. Clear to auscultation. Breath sounds equal bilaterally. GASTROINTESTINAL: Abdomen soft, non-tender, nondistended. BS normal. MUSCULOSKELETAL: Extremities without clubbing, cyanosis, or edema. No obvious deformities. NEUROLOGICAL: Awake, alert. No focal neurologic deficits. Moving both upper and lower extremities spontaneously. Laboratory Laboratory Tests Test 08/30/17 17:45 White Blood Count 8.2 Red Blood Count 4.10 Hemoglobin 12.9 Hematocrit 38.7 Mean Corpuscular Volume 94.3 Mean Corpuscular Hemoglobin 31.4 Mean Corpuscular Hemoglobin Concent 33.3 Red Cell Distribution Width 14.5 Platelet Count 129 Mean Platelet Volume 10.0 Neutrophils (%) (Auto) 70.4 Lymphocytes (%) (Auto) 18.2 Monocytes (%) (Auto) 10.2 Eosinophils (%) (Auto) 0.7 Basophils (%) (Auto) 0.5 Neutrophils # (Auto) 5.8 Lymphocytes # (Auto) 1.5 Monocytes # (Auto) 0.8 Eosinophils # (Auto) 0.1 Basophils # (Auto) 0.0 CBC Comment DIFF FINAL Differential Comment Prothrombin Time 11.4 Prothromb Time International Ratio 1.1 Activated Partial Thromboplast Time 22.6 Blood Urea Nitrogen 38 Creatinine 1.45 Random Glucose 103 Calcium Level 8.9 Magnesium Level 2.3 Sodium Level 143 Potassium Level 4.8 Chloride Level 106 Carbon Dioxide Level 30.8 Anion Gap 6 Estimat Glomerular Filtration Rate 34 Total Creatine Kinase 723 Creatine Kinase MB 6.3 Creatine Kinase MB % 0.9 Troponin I 0.12 B-Type Natriuretic Peptide 1767 Result Diagram: 08/30/17174408/30/171744 Caprini VTE Risk Assessment Caprinmagnus VTE Risk Assessment: No/Low Risk (score <= 1) Johnnyrini Risk Assessment Model Point Value = 1 Point Value = 2 Point Value = 3 Point Value = 5 Age 41-60 Minor surgery BMI > 25 kg/m2 Swollen legs Varicose veins or History of unexplained or recurrent spontaneous Oral contraceptives or hormone replacement Sepsis (< 1 month) Serious lung disease, including pneumonia (< 1 month) Abnormal pulmonary function Acute myocardial infarction Congestive heart failure (< 1 month) History of inflammatory bowel disease Medical patient at bed rest Age 61-74 Arthroscopic surgery Major open surgery (> 45 min) Laparoscopic surgery (> 45 min) Malignancy Confined to bed (> 72 hours) Immobilizing plaster cast Central venous access Age >= 75 History of VTE Family history of VTE Factor V Leiden Prothrombin [id number] Lupus anticoagulant Anticardiolipin antibodies Elevated serum homocysteine Heparin-induced thrombocytopenia Other congenital or acquired thrombophilia Stroke (< 1 month) Elective arthroplasty Hip, pelvis, or leg fracture Acute spinal cord injury (< 1 month) Prophylaxis Regimen Total Risk Factor Score Risk Level Prophylaxis Regimen 0-1 Low Early ambulation 2 Moderate Order ONE of the following: *Sequential Compression Device (SCD) *Heparin 5000 units SQ BID 3-4 Higher Order ONE of the following medications: *Heparin 5000 units SQ TID *Enoxaparin/Lovenox 40 mg SQ daily (WT < 150 kg, CrCl > 30 mL/min) *Enoxaparin/Lovenox 30 mg SQ daily (WT < 150 kg, CrCl > 10-29 mL/min) *Enoxaparin/Lovenox 30 mg SQ BID (WT < 150 kg, CrCl > 30 mL/min) AND/OR *Sequential Compression Device (SCD) 5 or more Highest Order ONE of the following medications: *Heparin 5000 units SQ TID (Preferred with Epidurals) *Enoxaparin/Lovenox 40 mg SQ daily (WT < 150 kg, CrCl > 30 mL/min) *Enoxaparin/Lovenox 30 mg SQ daily (WT < 150 kg, CrCl > 10-29 mL/min) *Enoxaparin/Lovenox 30 mg SQ BID (WT < 150 kg, CrCl > 30 mL/min) AND *Sequential Compression Device (SCD) Assessment and Plan Problem List: (1) CHF (congestive heart failure) ICD Code: I50.9 - Heart failure, unspecified (2) Elevated troponin ICD Code: R74.8 - Abnormal levels of other serum enzymes (3) Renal insufficiency ICD Code: N28.9 - Disorder of kidney and ureter, unspecified (4) Severe aortic stenosis ICD Code: I35.0 - Nonrheumatic aortic (valve) stenosis Assessment and Plan A/P: 1. CHF: Unknown EF. BNP 1767. CXR w/ bilateral pleural effusions, images reviewed by me. S/p Lasix 20mg IV in ER. Caution w/ diuresis in light of renal insufficiency, Lasix 20mg IV bid. Monitor I/O. 2. Elevated Trop: Trop 0.12, no c/o chest pain, likely secondary to underlying CHF/Severe . Place on telemetry, check serial cardiac enzymes, ASA , Statin, resume home Metoprolol. 3. Severe : Following w/ Dr. Mercado, s/p Cardiac Cath 08/01/17 w/ severe Aortic Stenosis, scheduled for surgical intervention on Saturday. Consult Dr. Mercado for further recommendations. Resume home medications. 4. Renal Insufficiency: Acute on Chronic. Creatinine 1.45, previously 1.20 on 08/01/17, caution w/ diuresis, monitor I/O. 5. DVT Prophylaxis: SCD/Teds. 6. Social work for d/c planning as needed. 7. Case discussed w/ ER physician at length, plan of care discussed w/ Son, labs/records/imaging reviewed by me. Katlyn Ramos MD Aug 30, 2017 20:00
[2017-08-30 21:50] VITALS: BP 105/45; PULSE 80; RESP 16; TEMP 98.3; O2SAT 100
[2017-08-30] MEDS: METOPROLOL TARTRATE 25 MG TAB PO SCH (22:47)
[2017-08-30] MEDS: ATORVASTATIN 80 MG TAB PO SCH (22:47)
[2017-08-30] MEDS: SODIUM CHLORIDE 0.9% FLUSH 10 ML FLUSH IV FLUSH SCH (22:48)
[2017-08-30] MEDS: DONEPEZIL HCL 5 MG TAB PO SCH (22:48)
[2017-08-30] MEDS: DOCUSATE SODIUM 50 MG/SENNA 8.6 MG TAB PO SCH (22:48)
[2017-08-31] VITALS (9 sets, daily range): BP systolic 112–135; BP diastolic 52–61; PULSE 72–90; RESP 16–18; TEMP 96.1–98.2; O2SAT 98–100
[2017-08-31 06:37] LABS: ALBUMIN 3.1 GM/DL (3.4-5.0); BICARBONATE 25.8 MEQ/L (21.0-32.0); CALCIUM 8.8 MG/DL (8.5-10.1); CHLORIDE 104 MEQ/L (98-107); GLUCOSE,RANDOM 113 MG/DL (74-106); SODIUM (NA) 142 MEQ/L (136-145)
[2017-08-31 06:38] LABS: AST (GOT) 92 U/L (15-37); BLOOD UREA NITROGEN 38 MG/DL (7-18); CREATININE 1.56 MG/DL (0.50-1.00); GLOMERULAR FILTRATION RATE 31 ML/MIN (>89)
[2017-08-31 06:40] LABS: ALKALINE PHOSPHATASE 285 U/L (45-117); ALT (GPT) 84 U/L (10-53); TOTAL BILIRUBIN ADULT 0.7 MG/DL (0.2-1.0); TOTAL PROTEIN 6.6 GM/DL (6.4-8.2); TROPONIN I 0.13 NG/ML (0.02-0.05)
[2017-08-31 06:54] LABS: AUTOMATED NEUTROPHIL # 4.9 TH/MM3 (1.8-7.7); BASOPHIL % 0.7 % (0.0-2.0); EOSINOPHIL % 0.4 % (0.0-4.0); HEMATOCRIT 38.2 % (35.0-46.0); HEMOGLOBIN 12.8 GM/DL (11.6-15.3); LYMPH % 14.6 % (9.0-44.0); LYMPHOCYTE # 0.9 TH/MM3 (1.0-4.8); MEAN CELL VOLUME 93.1 FL (80.0-100.0); MEAN CORPUSCULAR HEMOGLOBIN 31.1 PG (27.0-34.0); MEAN CORPUSCULAR HGB CONC 33.4 % (32.0-36.0); MEAN PLATELET VOLUME 10.2 FL (7.0-11.0); MONO % 8.2 % (0.0-8.0); MONOCYTE # 0.5 TH/MM3 (0-0.9); NEUT % 76.1 % (16.0-70.0); PLATELET COUNT 97 TH/MM3 (150-450); RED CELL DISTRIBUTION WIDTH 14.6 % (11.6-17.2); WHITE BLOOD COUNT 6.5 TH/MM3 (4.0-11.0)
--- NOTE | 2017-08-31 07:46 | HHI.PR ---
Subjective Remarks in no acute distress. sob is better. denies chest pain. Objective Vitals Vital Signs Date Time Temp Pulse Resp B/P (MAP) Pulse Ox O2 Delivery O2 Flow Rate FiO2 08/30/17 21:50 98.3 80 16 105/45 (65) 100 08/30/17 21:22 08/30/17 19:12 75 16 100 Nasal Cannula 2.00 08/30/17 19:11 76 16 105/50 (68) 100 08/30/17 17:38 68 16 93 Room Air 08/30/17 15:33 99.2 77 16 116/50 (72) 99 Result Diagram: 08/31/17 0434 08/31/17 0425 Imaging Last Impressions Chest X-Ray 08/30/17 1554 Signed Impressions: Service Date/Time: Wednesday, August 30, 2017 16:08 - CONCLUSION: 1. Mild positive fluid balance. 2. Small bilateral pleural effusions and associated bilateral lower lobe compressive atelectasis. Rogelio Fountain MD Objective Remarks GENERAL: This is a well-nourished, well-developed patient, in no apparent distress. CARDIOVASCULAR: Regular rate and regular rhythm with systolic murmur aortic area RESPIRATORY: basal crackles GASTROINTESTINAL: Abdomen soft, non-tender, nondistended. Normal, active bowel sounds MUSCULOSKELETAL: Extremities without clubbing, cyanosis, or edema. NEURO: awake and alert- but not oriented to time or place. Medications and IVs Inpatient Medications Acetaminophen (Tylenol) 650 mg Q6H PRN PO FEVER/PAIN SCALE 1 TO 2; Start at 20:00 Acetaminophen/ Hydrocodone Bitart ([place] 5-325 Mg) 1 tab Q4H PRN PO PAIN SCALE 3 TO 5; Start 08/30/17 at 20:00 Aspirin (Aspirin Chew) 81 mg DAILY CHEW ; Start 08/31/17 at 09:00 Atorvastatin Calcium (Lipitor) 80 mg HS PO Last administered on 08/30/17at 22:47 ; Start 08/30/17 at 21:00 Bisacodyl (Dulcolax Supp) 10 mg DAILY PRN RECTAL SEVERE CONSITIPATION; Start at 20:00 Clopidogrel Bisulfate (Plavix) 75 mg DAILY PO ; Start 08/31/17 at 09:00 Donepezil HCl (Aricept) 10 mg HS PO Last administered on 08/30/17at 22:48; Start 08/30/17 at 21:00 Furosemide (Lasix Inj) 20 mg ONCE ONCE IV PUSH Last administered on 08/30/17at 18:40; Start 08/30/17 at 18:30; Stop 08/30/17 at 18:31; Status DC Lactulose (Lactulose Liq) 30 ml DAILY PRN PO SEVERE CONSITIPATION; Start at 20:00 Magnesium Hydroxide (Milk Of Magnesia Liq) 30 ml Q12H PRN PO Mild constipation ; Start 08/30/17 at 20:00 Metoprolol Tartrate (Lopressor) 12.5 mg BID PO Last administered on 08/30/17at 22:47; Start 08/30/17 at 21:00 Morphine Sulfate (Morphine Inj) 1 mg Q3H PRN IV PUSH Pain 6-10; Start 08/30/17 at 20:00 Ondansetron HCl (Zofran Inj) 4 mg Q6H PRN IVP NAUSEA OR VOMITING; Start at 20:00 Patient Own Medication PT OWN MED: (Exemest... DAILY PO ; Start 08/31/17 at 09: 00 Senna/Docusate Sodium (Pooja-Colace) 1 tab BID PO Last administered on at 22:48; Start 08/30/17 at 21:00 Sennosides (Senokot) 17.2 mg Q12H PRN PO Moderate constipation; Start 08/30/17 at 20:00 Sodium Chloride (NS Flush) 2 ml BID IV FLUSH Last administered on 08/30/17at 22: 48; Start 08/30/17 at 21:00 A/P Problem List: (1) CHF (congestive heart failure) ICD Code: I50.9 - Heart failure, unspecified (2) Elevated troponin ICD Code: R74.8 - Abnormal levels of other serum enzymes (3) Renal insufficiency ICD Code: N28.9 - Disorder of kidney and ureter, unspecified (4) Severe aortic stenosis ICD Code: I35.0 - Nonrheumatic aortic (valve) stenosis Assessment and Plan A/P 1. CHF: BNP 1767. CXR w/ bilateral pleural effusions. S/p Lasix 20mg IV in ER. Caution w/ diuresis in light of renal insufficiency, Lasix 20mg IV daily. Monitor I/O. 2. Elevated Trop: Trop 0.12, no c/o chest pain, likely secondary to underlying CHF/Severe . continue telemetry. ASA plavix , Statin, resumed home Metoprolol. cardiology consult. 3. Severe : Following w/ Dr. Mercado, s/p Cardiac Cath 08/01/17 w/ severe Aortic Stenosis, scheduled for surgical intervention on Saturday. Consulted Dr. Mercado for further recommendations. Resumed home medications. 4. Renal Insufficiency: Acute on Chronic. Creatinine 1.45, previously 1.20 on 08/01/17, caution w/ diuresis, monitor I/O and renal function. 5.thrombocytopenia- chronic- will monitor. 6. elevated LFT's- due to CHF?-will consider holding statin if LFT's trending up. will monitor. 7. DVT Prophylaxis: SCD/Teds. Lee Bennett MD Aug 31, 2017 07:46
[2017-08-31] MEDS ORDERED: FUROSEMIDE 20 MG/2 ML VIAL IV PUSH SCH (09:00)
[2017-08-31] MEDS ORDERED: EXEMESTANE 25 MG PO SCH (09:00)
[2017-08-31 09:20] LABS: OVALOCYTES 1+ (NORMAL)
[2017-08-31] MEDS: CLOPIDOGREL 75 MG TAB PO SCH (10:11)
[2017-08-31] MEDS: ASPIRIN 81 MG CHEW TAB CHEW SCH (10:11)
[2017-08-31] MEDS: DOCUSATE SODIUM 50 MG/SENNA 8.6 MG TAB PO SCH ×2 (10:11→20:45)
[2017-08-31] MEDS: METOPROLOL TARTRATE 25 MG TAB PO SCH ×2 (10:12→20:45)
[2017-08-31] MEDS: SODIUM CHLORIDE 0.9% FLUSH 10 ML FLUSH IV FLUSH SCH ×2 (10:12→20:49)
--- NOTE | 2017-08-31 11:11 | MB ---
cc: MARIA ELENA TREJO M.D. DATE OF CONSULTATION 08/31/2017 REASON FOR CONSULTATION Evaluation for CHF. HISTORY OF PRESENT ILLNESS Daisy Lindsay is an 87-year-old woman with known severe aortic stenosis who is now admitted with CHF. She has pleural effusions on her chest x-ray. Her family notes she has been having some increasing shortness of breath and chest pressure, clearly showing some deterioration. The patient has had previous bypass surgery. She does just had a recent cath with Dr. Mercado showing adequate revascularization. She has severe aortic stenosis. She has planned to have TAVR on Saturday. The patient came in because of increasing shortness of breath. MEDICATIONS Her list of medications are charted. 1. She is on aspirin. 2. Clopidogrel. 3. She is also on low-dose beta hedy. 4. 20 mg Lasix daily. PAST MEDICAL HISTORY 1. Calcific aortic stenosis. 2. Mild dementia. 3. Coronary artery disease with previous bypass surgery in 2008. 4. Mild carotid disease. 5. Previous hypertension. 6. Dual-chamber Medtronic pacemaker. 7. Breast cancer. PAST SURGICAL HISTORY 1. Breast biopsy on the right bypass. 2. Bypass surgery. 3. Pacemaker implant. ALLERGIES LATEX. FAMILY HISTORY Positive for COPD, heart disease in a brother and Parkinson's disease. SOCIAL HISTORY She has had about one Vodka drink daily. Former smoker; does not smoke now. REVIEW OF SYSTEMS Notable for some diminished appetite and diminished memory. Otherwise unremarkable. PHYSICAL EXAMINATION GENERAL: Physical exam reveals a thin elderly white female. She appears frail. VITAL SIGNS: Charted. HEENT: Exam unremarkable. NECK EXAM: I do not appreciate much JVD at this time. CHEST: Diminished breath sounds and dullness at the bases. CARDIAC: Exam shows normal S1, soft S2 and a severe grade 2-3/6 aortic stenosis murmur. ABDOMEN: Benign. EXTREMITIES: She has intact peripheral pulses. No peripheral edema. EKG AV paced rhythm. CHEST X-RAY Small bilateral effusions consistent with CHF. IMPRESSION 1. Severe aortic stenosis. 2. Stable CAD. 3. Mildly decompensated CHF. PLAN We will continue Lasix 20 IV b.i.d. Her creatinine is mildly elevated so we will hold her angiotensin hedy, beta-hedy is at very low dose. Continue aspirin and Plavix. MD SHANIKA Rincon/[place] /9:59 AM /10:47 AM
--- NOTE | 2017-08-31 16:39 | EKG ---
Date Performed: 08/30/2017 Time Performed: 17:15:07 PTAGE: 87 years EKG: Sinus rhythm LEFT ATRIAL ENLARGEMENT P wave synchronous ventricular pacing versus LEFT BUNDLE BRANCH BLOCK Since previous tracing, no significant change noted ABNORMAL ECG PREVIOUS TRACING : 08/01/2017 12.07 DOCTOR: Jaguar Donato Interpretating Date/Time 08/31/2017 16:38:53
--- NOTE | 2017-08-31 16:39 | EKG ---
Date Performed: 08/31/2017 Time Performed: 02:46:12 PTAGE: 87 years EKG: Sinus rhythm LEFT ATRIAL ENLARGEMENT P wave synchronous ventricular pacing LEFT BUNDLE BRANCH BLOCK Since previou s tracing, no significant change noted ABNORMAL ECG PREVIOUS TRACING : 08/30/2017 17.15 DOCTOR: Jaguar Donato Interpretating Date/Time 08/31/2017 16:37:58
[2017-08-31] MEDS: FUROSEMIDE 20 MG/2 ML VIAL IV PUSH SCH (17:43)
[2017-08-31] MEDS: EXEMESTANE 25 MG PO SCH (20:43)
[2017-08-31] MEDS: ATORVASTATIN 80 MG TAB PO SCH (20:44)
[2017-08-31] MEDS: DONEPEZIL HCL 5 MG TAB PO SCH (21:15)
[2017-09-01] VITALS (26 sets, daily range): BP systolic 110–142; BP diastolic 51–65; PULSE 63–90; RESP 16–20; TEMP 97.5–98.5; O2SAT 93–98
[2017-09-01 05:51] LABS: ALBUMIN 3.3 GM/DL (3.4-5.0); ALT (GPT) 86 U/L (10-53); AST (GOT) 90 U/L (15-37); BICARBONATE 21.2 MEQ/L (21.0-32.0); BLOOD UREA NITROGEN 51 MG/DL (7-18); CALCIUM 9.1 MG/DL (8.5-10.1); CHLORIDE 105 MEQ/L (98-107); CREATININE 1.81 MG/DL (0.50-1.00); GLOMERULAR FILTRATION RATE 27 ML/MIN (>89); GLUCOSE,RANDOM 138 MG/DL (74-106); SODIUM (NA) 137 MEQ/L (136-145)
[2017-09-01 05:59] LABS: ALKALINE PHOSPHATASE 298 U/L (45-117); TOTAL BILIRUBIN ADULT 0.7 MG/DL (0.2-1.0); TOTAL PROTEIN 7.1 GM/DL (6.4-8.2)
[2017-09-01] MEDS: METOPROLOL TARTRATE 25 MG TAB PO SCH ×2 (09:00→20:42)
[2017-09-01] MEDS: CLOPIDOGREL 75 MG TAB PO SCH (09:00)
[2017-09-01] MEDS: ASPIRIN 81 MG CHEW TAB CHEW SCH (09:00)
[2017-09-01] MEDS: DOCUSATE SODIUM 50 MG/SENNA 8.6 MG TAB PO SCH ×2 (09:00→20:43)
[2017-09-01] MEDS: SODIUM CHLORIDE 0.9% FLUSH 10 ML FLUSH IV FLUSH SCH ×2 (09:00→20:43)
--- NOTE | 2017-09-01 12:38 | HHI.PR ---
Subjective Remarks This is a pleasant 87 y/o Female with Breast Cancer, Hypertension, Hyperlipidemia, CHF, CAD and Severe Aortic Stenosis, brought in due to Shortness of breath, Recent Cardiac Cath 08/01/[address] Mercado w / severe [place] vessel disease, patent grafts and severe aortic stenosis. Per Son, pt scheduled for Aortic Valve Replacement on Saturday. she has Thrombocytopenia FABRICIO on CKD, CXR with mild positive fluid balance, small bilateral pleural effusions. Given Lasix in ER, seen in her bedroom in the presence of Nurse Mr. Miranda, her Son and Daughter in law. Objective Vital Signs Date Time Temp Pulse Resp B/P (MAP) Pulse Ox O2 Delivery O2 Flow Rate FiO2 09/01/17 06:01 86 09/01/17 05:02 74 09/01/17 04:38 81 09/01/17 03:45 98.2 86 20 142/65 (90) 95 09/01/17 03:33 67 09/01/17 02:03 77 09/01/17 01:03 84 09/01/17 00:17 73 08/31/17 23:30 97.8 88 18 135/60 (85) 98 08/31/17 23:30 78 08/31/17 22:15 72 08/31/17 21:30 72 08/31/17 20:15 76 08/31/17 19:29 99 Nasal Cannula 2.00 08/31/17 19:20 98.1 79 16 112/54 (73) 100 08/31/17 19:20 86 08/31/17 18:09 78 08/31/17 18:09 78 16 120/52 (74) 99 I/O 08/31/17 08/31/17 08/31/17 09/01/17 09/01/17 09/01/17 07:00 15:00 23:00 07:00 15:00 23:00 Intake Total 240 ml Output Total 100 ml Balance 140 ml Intake Oral 240 ml Output Urine Total 100 ml # Voids 1 # Bowel Movements 1 Result Diagram: 08/31/17 0434 09/01/17 0425 Imaging Last Impressions Chest X-Ray 08/30/17 0940 Signed Impressions: Service Date/Time: Wednesday, August 30, 2017 16:08 - CONCLUSION: 1. Mild positive fluid balance. 2. Small bilateral pleural effusions and associated bilateral lower lobe compressive atelectasis. Rogelio Fountain MD Procedures None Other Results Laboratory Tests Test 08/30/17 17:45 08/31/17 04:25 08/31/17 04:34 09/01/17 04:25 Prothrombin Time 11.4 SEC Prothromb Time International Ratio 1.1 RATIO Activated Partial Thromboplast Time 22.6 SEC Blood Urea Nitrogen 38 MG/DL 51 MG/DL Creatinine 1.45 MG/DL 1.81 MG/DL Random Glucose 103 MG/DL 138 MG/DL Calcium Level 8.9 MG/DL 9.1 MG/DL Magnesium Level 2.3 MG/DL Sodium Level 143 MEQ/L 137 MEQ/L Potassium Level 4.8 MEQ/L 4.5 MEQ/L Chloride Level 106 MEQ/L 105 MEQ/L Carbon Dioxide Level 30.8 MEQ/L 21.2 MEQ/L Total Creatine Kinase 723 U/L Creatine Kinase MB 6.3 NG/ML Creatine Kinase MB % 0.9 % B-Type Natriuretic Peptide 1767 PG/ML Troponin I 0.13 NG/ML White Blood Count 6.5 TH/MM3 Red Blood Count 4.10 MIL/MM3 Hemoglobin 12.8 GM/DL Hematocrit 38.2 % Mean Corpuscular Volume 93.1 FL Mean Corpuscular Hemoglobin 31.1 PG Mean Corpuscular Hemoglobin Concent 33.4 % Red Cell Distribution Width 14.6 % Platelet Count 97 TH/MM3 Mean Platelet Volume 10.2 FL Neutrophils (%) (Auto) 76.1 % Lymphocytes (%) (Auto) 14.6 % Monocytes (%) (Auto) 8.2 % Eosinophils (%) (Auto) 0.4 % Basophils (%) (Auto) 0.7 % Neutrophils # (Auto) 4.9 TH/MM3 Lymphocytes # (Auto) 0.9 TH/MM3 Monocytes # (Auto) 0.5 TH/MM3 Eosinophils # (Auto) 0.0 TH/MM3 Basophils # (Auto) 0.0 TH/MM3 CBC Comment AUTO DIFF Differential Comment AUTO DIFF CONFIRMED Platelet Estimate LOW Platelet Morphology Comment ENLARGED Ovalocytes 1+ Hematology Comments Total Protein 7.1 GM/DL Albumin 3.3 GM/DL Alkaline Phosphatase 298 U/L Aspartate Amino Transf (AST/SGOT) 90 U/L Alanine Aminotransferase (ALT/SGPT) 86 U/L Total Bilirubin 0.7 MG/DL Anion Gap 11 MEQ/L Estimat Glomerular Filtration Rate 27 ML/MIN Objective Remarks GENERAL: NO acute distress. pleasantly confused. HEENT: PERRLA, EOMI. No scleral icterus or conjunctival pallor. No lid lag or facial droop. CARDIOVASCULAR: Regular rate and rhythm. No obvious murmurs to auscultation. No chest tenderness to palpation. RESPIRATORY: No obvious rhonchi or wheezing. Clear to auscultation. Breath sounds equal bilaterally. GASTROINTESTINAL: Abdomen soft, non-tender, nondistended. BS normal. MUSCULOSKELETAL: Extremities without clubbing, cyanosis, or edema. No obvious deformities. NEUROLOGICAL: Awake, alert. No focal neurologic deficits. confused. Medications and IVs Current Medications Medications (Trade) Dose Ordered Sig/Farzaneh Route Start Time Stop Time Status Last Admin (NS Flush) 2 ml UNSCH PRN IV FLUSH 08/30/17 20:00 (NS Flush) 2 ml BID IV FLUSH 08/30/17 21:00 08/31/17 20:49 (Zofran Inj) 4 mg Q6H PRN IVP 08/30/17 20:00 (Tylenol) 650 mg Q6H PRN PO 08/30/17 20:00 ([place] 5-325 Mg) 1 tab Q4H PRN PO 08/30/17 20:00 (Morphine Inj) 1 mg Q3H PRN IV PUSH 08/30/17 20:00 (Pooja-Colace) 1 tab BID PO 08/30/17 21:00 08/31/17 20:45 (Milk Of Magnesia Liq) 30 ml Q12H PRN PO 08/30/17 20:00 (Senokot) 17.2 mg Q12H PRN PO 08/30/17 20:00 (Dulcolax Supp) 10 mg DAILY PRN RECTAL 08/30/17 20:00 (Lactulose Liq) 30 ml DAILY PRN PO 08/30/17 20:00 (Aspirin Chew) 81 mg DAILY CHEW 08/31/17 09:00 08/31/17 10:11 (Lipitor) 80 mg HS PO 08/30/17 21:00 08/31/17 20:44 (Plavix) 75 mg DAILY PO 08/31/17 09:00 08/31/17 10:11 (Aricept) 10 mg HS PO 08/30/17 21:00 08/31/17 21:15 (Lopressor) 12.5 mg BID PO 08/30/17 21:00 08/31/17 20:45 (Lasix Inj) 20 mg BID@,18 IV PUSH 08/31/17 18:00 08/31/17 17:43 Patient Own Medication PT OWN MED: (Exemest... HS PO 08/31/17 21:00 08/31/17 20:43 A/P Assessment and Plan 1. CHF: Unknown EF. BNP 1767. CXR w/ bilateral pleural effusions. 2. Equivocal Troponin elevation, continue Cardiac Enzymes, Aspirin 3. Severe : Following w/ Dr. Mercado, s/p Cardiac Cath 08/01/17 w/ severe Aortic Stenosis, scheduled for surgical intervention TAVR on Saturday, recommended to continue Lasix IV BID, on hold ARB. continue Aspirin and Plavix. 4. Renal Insufficiency: Acute on Chronic. Creatinine 1.45, previously 1.20 on 08/01/17 5. Elevated LFTs probable related to hepatic congestion. DVT Prophylaxis: SCD/Teds. Discharge Planning Once cleared by vision specialist. Jus Gastelum MD Sep 01, 2017 12:38
--- NOTE | 2017-09-01 15:42 | PD.CARD.PN ---
Subjective Subjective Remarks SOB improved Objective Medications Current Medications Medications (Trade) Dose Ordered Sig/Farzaneh Route Start Time Stop Time Status Last Admin (NS Flush) 2 ml UNSCH PRN IV FLUSH 08/30/17 20:00 (NS Flush) 2 ml BID IV FLUSH 08/30/17 21:00 08/31/17 20:49 (Zofran Inj) 4 mg Q6H PRN IVP 08/30/17 20:00 (Tylenol) 650 mg Q6H PRN PO 08/30/17 20:00 ([place] 5-325 Mg) 1 tab Q4H PRN PO 08/30/17 20:00 (Morphine Inj) 1 mg Q3H PRN IV PUSH 08/30/17 20:00 (Pooja-Colace) 1 tab BID PO 08/30/17 21:00 08/31/17 20:45 (Milk Of Magnesia Liq) 30 ml Q12H PRN PO 08/30/17 20:00 (Senokot) 17.2 mg Q12H PRN PO 08/30/17 20:00 (Dulcolax Supp) 10 mg DAILY PRN RECTAL 08/30/17 20:00 (Lactulose Liq) 30 ml DAILY PRN PO 08/30/17 20:00 (Aspirin Chew) 81 mg DAILY CHEW 08/31/17 09:00 08/31/17 10:11 (Lipitor) 80 mg HS PO 08/30/17 21:00 08/31/17 20:44 (Plavix) 75 mg DAILY PO 08/31/17 09:00 08/31/17 10:11 (Aricept) 10 mg HS PO 08/30/17 21:00 08/31/17 21:15 (Lopressor) 12.5 mg BID PO 08/30/17 21:00 08/31/17 20:45 (Lasix Inj) 20 mg BID@ IV PUSH 08/31/17 18:00 08/31/17 17:43 Patient Own Medication PT OWN MED: (Exemest... HS PO 08/31/17 21:00 08/31/17 20:43 Vital Signs / I&O Vital Signs Date Time Temp Pulse Resp B/P (MAP) Pulse Ox O2 Delivery O2 Flow Rate FiO2 09/01/17 07:00 65 09/01/17 07:00 97.5 65 16 117/51 (73) 97 09/01/17 06:01 86 09/01/17 05:02 74 09/01/17 04:38 81 09/01/17 03:45 98.2 86 20 142/65 (90) 95 09/01/17 03:33 67 09/01/17 02:03 77 09/01/17 01:03 84 09/01/17 00:17 73 08/31/17 23:30 97.8 88 18 135/60 (85) 98 08/31/17 23:30 78 08/31/17 22:15 72 08/31/17 21:30 72 08/31/17 20:15 76 08/31/17 19:29 99 Nasal Cannula 2.00 08/31/17 19:20 98.1 79 16 112/54 (73) 100 08/31/17 19:20 86 08/31/17 18:09 78 08/31/17 18:09 78 16 120/52 (74) 99 I/O 08/31/17 08/31/17 08/31/17 09/01/17 09/01/17 09/01/17 07:00 15:00 23:00 07:00 15:00 23:00 Intake Total 240 ml Output Total 100 ml Balance 140 ml Intake Oral 240 ml Output Urine Total 100 ml # Voids 1 # Bowel Movements 1 Physical Exam Thin WF No JVD Chest absent BS at bases (pleural effusions) No edema Laboratory Laboratory Tests Test 09/01/17 04:25 Blood Urea Nitrogen 51 MG/DL Creatinine 1.81 MG/DL Random Glucose 138 MG/DL Total Protein 7.1 GM/DL Albumin 3.3 GM/DL Calcium Level 9.1 MG/DL Alkaline Phosphatase 298 U/L Aspartate Amino Transf (AST/SGOT) 90 U/L Alanine Aminotransferase (ALT/SGPT) 86 U/L Total Bilirubin 0.7 MG/DL Sodium Level 137 MEQ/L Potassium Level 4.5 MEQ/L Chloride Level 105 MEQ/L Carbon Dioxide Level 21.2 MEQ/L Anion Gap 11 MEQ/L Estimat Glomerular Filtration Rate 27 ML/MIN Assessment and Plan Problem List: (1) Severe aortic stenosis ICD Codes: I35.0 - Nonrheumatic aortic (valve) stenosis (2) CHF (congestive heart failure) ICD Codes: I50.9 - Heart failure, unspecified Assessment and Plan Check CXR in AM. Concerned with increased BUN, creat. Might be able to cut back diuretics tomorrow. Discussed Condition With family Jaguar Donato MD Sep 01, 2017 15:42
[2017-09-01] MEDS: FUROSEMIDE 20 MG/2 ML VIAL IV PUSH SCH (18:35)
[2017-09-01] MEDS: DONEPEZIL HCL 5 MG TAB PO SCH (20:42)
[2017-09-01] MEDS: EXEMESTANE 25 MG PO SCH (20:42)
[2017-09-01] MEDS: ATORVASTATIN 80 MG TAB PO SCH (20:42)
--- NOTE | 2017-09-01 23:39 | RADRPT ---
EXAM DATE/TIME: 09/01/2017 22:35 [facility] COMPARISON: No previous studies available for comparison. [facility], US LIVER June 11, 2017 INDICATIONS : Increased Lab Values. MEDICAL HISTORY : Congestive heart failure. Myocardial infarction. Hypercholesterolemia. Cataracts. Hypertension. Breas t cancer. CAD. SURGICAL HISTORY : CABG. Left masectomy. ENCOUNTER: Initial ACUITY: 1 day PAIN SCORE: 2/10 LOCATION: Bilateral upper quadrant MEASUREMENTS: LIVER: 12.8 cm length COMMON DUCT: 5 mm RIGHT KIDNEY: 9.1 x 3.9 x 3.8 cm SPLEEN: 9.8 cm length FINDINGS: LIVER: The liver appears diffusely heterogeneous. There is nodularity of the liver margin. No focal hepatic masses seen. COMMON DUCT: No intraluminal mass or stone visualized. GALLBLADDER: Gallstones are seen. Color wall is not thickened. PANCREAS: The visualized portions are within normal limits. RIGHT KIDNEY: No hydronephrosis, stone or mass. SPLEEN: No focal lesion. OTHER: There are large bilateral pleural effusions. CONCLUSION: 1. Heterogeneous liver with nodularity to the liver margin concerning for cirrhosis. 2. Gallstones. 3. Large bilateral pleural effusions. Larry Luz MD on September 01, 2017 at 23:34 Board Certified Radiologist. This report was verified electronically.
[2017-09-02] VITALS (28 sets, daily range): BP systolic 100–122; BP diastolic 45–56; PULSE 65–100; RESP 17–20; TEMP 97.5–98.1; O2SAT 93–100
--- NOTE | 2017-09-02 04:55 | RADRPT ---
EXAM DATE/TIME: 09/02/2017 03:55 [facility] COMPARISON: CHEST SINGLE AP, August 01, 2017, 16:52. INDICATIONS : Shortness of breath, possible pneumothorax. MEDICAL HISTORY : Congestive heart failure. SURGICAL HISTORY : Pacemaker. CABG. ENCOUNTER: Subsequent ACUITY: 1 week PAIN SCORE: 0/10 LOCATION: Bilateral chest FINDINGS: The patient is status post sternotomy. There is a pacing device in place from the left subclavian catherine galvin. There are mild bilateral pleural effusions. There is increased density at the bases being more prominent on the right. CONCLUSION: 1. Mild bilateral pleural effusions. 2. Increased density at the bases especially on the right represents some accompanying atelectasis or consolidation. Larry Luz MD on September 02, 2017 at 4:52 Board Certified Radiologist. This report was verified electronically.
[2017-09-02 05:10] LABS: ALBUMIN 3.3 GM/DL (3.4-5.0); ALKALINE PHOSPHATASE 266 U/L (45-117); ALT (GPT) 75 U/L (10-53); AST (GOT) 79 U/L (15-37); BICARBONATE 26.3 MEQ/L (21.0-32.0); BLOOD UREA NITROGEN 56 MG/DL (7-18); CALCIUM 9.1 MG/DL (8.5-10.1); CHLORIDE 102 MEQ/L (98-107); CREATININE 1.57 MG/DL (0.50-1.00); GLOMERULAR FILTRATION RATE 31 ML/MIN (>89); GLUCOSE,RANDOM 104 MG/DL (74-106); SODIUM (NA) 138 MEQ/L (136-145); TOTAL BILIRUBIN ADULT 0.9 MG/DL (0.2-1.0)
--- NOTE | 2017-09-02 08:23 | EKG ---
Date Performed: 08/31/2017 Time Performed: 08:19:02 PTAGE: 87 years EKG: Sinus rhythm LEFT ATRIAL ABNORMALITY LEFT BUNDLE BRANCH BLOCK Since previous tracing, no significant change noted ABNORMAL ECG PREVIOUS TRACING : 08/31/2017 02.46 DOCTOR: Jaguar Donato Interpretating Date/Time 09/02/2017 08:22:51
[2017-09-02] MEDS: CLOPIDOGREL 75 MG TAB PO SCH (08:58)
[2017-09-02] MEDS: METOPROLOL TARTRATE 25 MG TAB PO SCH ×2 (08:58→20:23)
[2017-09-02] MEDS: DOCUSATE SODIUM 50 MG/SENNA 8.6 MG TAB PO SCH ×2 (09:00→20:24)
[2017-09-02] MEDS: FUROSEMIDE 20 MG/2 ML VIAL IV PUSH SCH ×2 (09:03→17:34)
[2017-09-02] MEDS: SODIUM CHLORIDE 0.9% FLUSH 10 ML FLUSH IV FLUSH SCH ×2 (09:03→20:24)
[2017-09-02] MEDS: ASPIRIN 81 MG CHEW TAB CHEW SCH (09:19)
--- NOTE | 2017-09-02 11:47 | PD.CARD.PN ---
Subjective Subjective Remarks Over the weekend events noted Objective Medications Current Medications Medications (Trade) Dose Ordered Sig/Farzaneh Route Start Time Stop Time Status Last Admin (NS Flush) 2 ml UNSCH PRN IV FLUSH 08/30/17 20:00 (NS Flush) 2 ml BID IV FLUSH 08/30/17 21:00 09/02/17 09:03 (Zofran Inj) 4 mg Q6H PRN IVP 08/30/17 20:00 (Tylenol) 650 mg Q6H PRN PO 08/30/17 20:00 ([place] 5-325 Mg) 1 tab Q4H PRN PO 08/30/17 20:00 (Morphine Inj) 1 mg Q3H PRN IV PUSH 08/30/17 20:00 (Pooja-Colace) 1 tab BID PO 08/30/17 21:00 09/01/17 09:00 (Milk Of Magnesia Liq) 30 ml Q12H PRN PO 08/30/17 20:00 (Senokot) 17.2 mg Q12H PRN PO 08/30/17 20:00 (Dulcolax Supp) 10 mg DAILY PRN RECTAL 08/30/17 20:00 (Lactulose Liq) 30 ml DAILY PRN PO 08/30/17 20:00 (Aspirin Chew) 81 mg DAILY CHEW 08/31/17 09:00 09/02/17 09:19 (Lipitor) 80 mg HS PO 08/30/17 21:00 09/01/17 20:42 (Plavix) 75 mg DAILY PO 08/31/17 09:00 09/02/17 08:58 (Aricept) 10 mg HS PO 08/30/17 21:00 09/01/17 20:42 (Lopressor) 12.5 mg BID PO 08/30/17 21:00 09/02/17 08:58 (Lasix Inj) 20 mg BID@ IV PUSH 08/31/17 18:00 09/02/17 09:03 Patient Own Medication PT OWN MED: (Exemest... HS PO 08/31/17 21:00 09/01/17 20:42 Vital Signs / I&O Vital Signs Date Time Temp Pulse Resp B/P (MAP) Pulse Ox O2 Delivery O2 Flow Rate FiO2 09/02/17 11:37 97.5 68 18 100/45 (63) 100 09/02/17 10:21 74 09/02/17 09:00 78 09/02/17 08:06 97.5 76 18 111/49 (69) 97 09/02/17 08:00 66 09/02/17 07:00 85 09/02/17 06:10 72 09/02/17 05:07 76 09/02/17 04:51 70 09/02/17 03:35 97.9 75 17 109/47 (67) 93 09/02/17 03:23 68 09/02/17 02:45 72 09/02/17 01:14 68 09/02/17 00:21 69 09/01/17 23:06 63 09/01/17 23:06 98.2 65 18 125/51 (75) 93 09/01/17 22:29 64 09/01/17 21:15 66 09/01/17 20:25 66 09/01/17 19:53 67 09/01/17 19:53 97.9 78 18 123/53 (76) 97 09/01/17 18:00 90 09/01/17 17:00 76 09/01/17 16:00 74 09/01/17 15:30 98.4 74 16 117/51 (73) 98 09/01/17 15:00 72 09/01/17 14:00 72 09/01/17 13:00 70 09/01/17 12:00 98.5 78 16 110/51 (70) 97 09/01/17 12:00 66 I/O 09/01/17 09/01/17 09/01/17 09/02/17 09/02/17 09/02/17 07:00 15:00 23:00 07:00 15:00 23:00 Intake Total 240 ml 425 ml 240 ml Output Total 100 ml 300 ml 200 ml Balance 140 ml 125 ml 40 ml Intake Oral 240 ml 425 ml 240 ml Output Urine Total 100 ml 300 ml 200 ml # Voids 1 2 # Bowel Movements 1 0 2 Physical Exam GENERAL: Well-nourished, well-developed patient. SKIN: Warm and dry. HEAD: Normocephalic. EYES: No scleral icterus. No injection or drainage. NECK: Supple, trachea midline. No JVD or lymphadenopathy. CARDIOVASCULAR: Regular rate and rhythm without murmurs, gallops, or rubs. RESPIRATORY: Breath sounds equal bilaterally. No accessory muscle use. Poor inspiratory effort GASTROINTESTINAL: Abdomen soft, non-tender, nondistended. EXTREMITIES: No cyanosis, or edema. NEUROLOGICAL: Awake, alert, and oriented x 3. Non-focal. Laboratory Laboratory Tests Test 09/02/17 03:34 Blood Urea Nitrogen 56 MG/DL Creatinine 1.57 MG/DL Random Glucose 104 MG/DL Total Protein 7.0 GM/DL Albumin 3.3 GM/DL Calcium Level 9.1 MG/DL Alkaline Phosphatase 266 U/L Aspartate Amino Transf (AST/SGOT) 79 U/L Alanine Aminotransferase (ALT/SGPT) 75 U/L Total Bilirubin 0.9 MG/DL Sodium Level 138 MEQ/L Potassium Level 3.5 MEQ/L Chloride Level 102 MEQ/L Carbon Dioxide Level 26.3 MEQ/L Anion Gap 10 MEQ/L Estimat Glomerular Filtration Rate 31 ML/MIN Imaging Last 24 hours Impressions Chest X-Ray 09/02/17 0600 Signed Impressions: Service Date/Time: Saturday, September 02, 2017 03:55 - CONCLUSION: 1. Mild bilateral pleural effusions. 2. Increased density at the bases especially on the right represents some accompanying atelectasis or consolidation. Larry Luz MD Assessment and Plan Problem List: (1) Severe aortic stenosis ICD Codes: I35.0 - Nonrheumatic aortic (valve) stenosis Plan: Admitted with acute on chronic HF in the setting of severe . Doing better with diuresis, however still not fully compensated from HF. Might need to cancel TAVR procedure until she gets stronger, and renal function improves. CKD, creatine trending down this am. Recommendations: 1. Strict I&O 2. Gentle IV diuresis 3. Low salt diet 4. PT/OT 5. Encourage ambulation and incentive spirometry 6. Hold ACEi/ARB and nephrotoxic drugs given FABRICIO 7. Avoid electrolytes abnormalities (2) CHF (congestive heart failure) ICD Codes: I50.9 - Heart failure, unspecified Mercado-Frederick Jose MD Sep 02, 2017 11:47
--- NOTE | 2017-09-02 16:12 | HHI.PR ---
Subjective Remarks This is a pleasant 87 y/o Female with Breast Cancer, Hypertension, Hyperlipidemia, CHF, CAD and Severe Aortic Stenosis, brought in due to Shortness of breath, Recent Cardiac Cath 08/01/[address] Mercado w / severe [place] vessel disease, patent grafts and severe aortic stenosis. Per Son, pt scheduled for Aortic Valve Replacement on Saturday. she has Thrombocytopenia FABRICIO on CKD, CXR with mild positive fluid balance, small bilateral pleural effusions. Given Lasix in ER. 09/02: Seen in her bedroom and discussed with nurse and personnel placement specialist doctor Frederick jOeda recommended strict Is and Os Gentle IV diuresis, Low salt diet, PT and OT, encourage ambulation, no nausea, vomit or diarrhea as per Doctor Jess won't perform Aortic Valve replacement prefer to discharge home and follow as outpatient to re schedule surgery. Objective Vital Signs Date Time Temp Pulse Resp B/P (MAP) Pulse Ox O2 Delivery O2 Flow Rate FiO2 09/02/17 15:53 98.1 77 18 105/48 (67) 99 09/02/17 15:04 71 09/02/17 14:46 79 09/02/17 13:00 74 09/02/17 12:00 72 09/02/17 11:37 97.5 68 18 100/45 (63) 100 09/02/17 11:00 65 09/02/17 10:21 74 09/02/17 09:00 78 09/02/17 08:06 97.5 76 18 111/49 (69) 97 09/02/17 08:00 66 09/02/17 07:00 85 09/02/17 06:10 72 09/02/17 05:07 76 09/02/17 04:51 70 09/02/17 03:35 97.9 75 17 109/47 (67) 93 09/02/17 03:23 68 09/02/17 02:45 72 09/02/17 01:14 68 09/02/17 00:21 69 09/01/17 23:06 63 09/01/17 23:06 98.2 65 18 125/51 (75) 93 09/01/17 22:29 64 09/01/17 21:15 66 09/01/17 20:25 66 09/01/17 19:53 67 09/01/17 19:53 97.9 78 18 123/53 (76) 97 09/01/17 18:00 90 09/01/17 17:00 76 I/O 09/01/17 09/01/17 09/01/17 09/02/17 09/02/17 09/02/17 06:59 14:59 22:59 06:59 14:59 22:59 Intake Total 240 ml 425 ml 240 ml Output Total 100 ml 300 ml 200 ml Balance 140 ml 125 ml 40 ml Intake Oral 240 ml 425 ml 240 ml Output Urine Total 100 ml 300 ml 200 ml # Voids 1 2 # Bowel Movements 1 0 2 Result Diagram: 08/31/17 0434 09/02/17 0334 Imaging Last Impressions Chest X-Ray 09/02/17 0600 Signed Impressions: Service Date/Time: Saturday, September 02, 2017 03:55 - CONCLUSION: 1. Mild bilateral pleural effusions. 2. Increased density at the bases especially on the right represents some accompanying atelectasis or consolidation. Larry Luz MD Liver Ultrasound 09/01/17 0000 Signed Impressions: Service Date/Time: Friday, September 01, 2017 22:35 - CONCLUSION: 1. Heterogeneous liver with nodularity to the liver margin concerning for cirrhosis. 2. Gallstones. 3. Large bilateral pleural effusions. Larry Luz MD Procedures None Other Results Laboratory Tests Test 08/30/17 17:45 08/31/17 04:25 08/31/17 04:34 09/02/17 03:34 Prothrombin Time 11.4 SEC Prothromb Time International Ratio 1.1 RATIO Activated Partial Thromboplast Time 22.6 SEC Blood Urea Nitrogen 38 MG/DL 56 MG/DL Creatinine 1.45 MG/DL 1.57 MG/DL Random Glucose 103 MG/DL 104 MG/DL Calcium Level 8.9 MG/DL 9.1 MG/DL Magnesium Level 2.3 MG/DL Sodium Level 143 MEQ/L 138 MEQ/L Potassium Level 4.8 MEQ/L 3.5 MEQ/L Chloride Level 106 MEQ/L 102 MEQ/L Carbon Dioxide Level 30.8 MEQ/L 26.3 MEQ/L Total Creatine Kinase 723 U/L Creatine Kinase MB 6.3 NG/ML Creatine Kinase MB % 0.9 % B-Type Natriuretic Peptide 1767 PG/ML Troponin I 0.13 NG/ML White Blood Count 6.5 TH/MM3 Red Blood Count 4.10 MIL/MM3 Hemoglobin 12.8 GM/DL Hematocrit 38.2 % Mean Corpuscular Volume 93.1 FL Mean Corpuscular Hemoglobin 31.1 PG Mean Corpuscular Hemoglobin Concent 33.4 % Red Cell Distribution Width 14.6 % Platelet Count 97 TH/MM3 Mean Platelet Volume 10.2 FL Neutrophils (%) (Auto) 76.1 % Lymphocytes (%) (Auto) 14.6 % Monocytes (%) (Auto) 8.2 % Eosinophils (%) (Auto) 0.4 % Basophils (%) (Auto) 0.7 % Neutrophils # (Auto) 4.9 TH/MM3 Lymphocytes # (Auto) 0.9 TH/MM3 Monocytes # (Auto) 0.5 TH/MM3 Eosinophils # (Auto) 0.0 TH/MM3 Basophils # (Auto) 0.0 TH/MM3 CBC Comment AUTO DIFF Differential Comment AUTO DIFF CONFIRMED Platelet Estimate LOW Platelet Morphology Comment ENLARGED Ovalocytes 1+ Hematology Comments Total Protein 7.0 GM/DL Albumin 3.3 GM/DL Alkaline Phosphatase 266 U/L Aspartate Amino Transf (AST/SGOT) 79 U/L Alanine Aminotransferase (ALT/SGPT) 75 U/L Total Bilirubin 0.9 MG/DL Anion Gap 10 MEQ/L Estimat Glomerular Filtration Rate 31 ML/MIN Objective Remarks GENERAL: NO acute distress. pleasantly confused. HEENT: PERRLA, EOMI. No scleral icterus or conjunctival pallor. No lid lag or facial droop. CARDIOVASCULAR: Regular rate and rhythm. No obvious murmurs to auscultation. No chest tenderness to palpation. RESPIRATORY: No obvious rhonchi or wheezing. Clear to auscultation. Breath sounds equal bilaterally. GASTROINTESTINAL: Abdomen soft, non-tender, nondistended. BS normal. MUSCULOSKELETAL: Extremities without clubbing, cyanosis, or edema. No obvious deformities. NEUROLOGICAL: Awake, alert. No focal neurologic deficits. confused. Medications and IVs Current Medications Medications (Trade) Dose Ordered Sig/Farzaneh Route Start Time Stop Time Status Last Admin (NS Flush) 2 ml UNSCH PRN IV FLUSH 08/30/17 20:00 (NS Flush) 2 ml BID IV FLUSH 08/30/17 21:00 09/02/17 09:03 (Zofran Inj) 4 mg Q6H PRN IVP 08/30/17 20:00 (Tylenol) 650 mg Q6H PRN PO 08/30/17 20:00 ([place] 5-325 Mg) 1 tab Q4H PRN PO 08/30/17 20:00 (Morphine Inj) 1 mg Q3H PRN IV PUSH 08/30/17 20:00 (Pooja-Colace) 1 tab BID PO 08/30/17 21:00 09/01/17 09:00 (Milk Of Magnesia Liq) 30 ml Q12H PRN PO 08/30/17 20:00 (Senokot) 17.2 mg Q12H PRN PO 08/30/17 20:00 (Dulcolax Supp) 10 mg DAILY PRN RECTAL 08/30/17 20:00 (Lactulose Liq) 30 ml DAILY PRN PO 08/30/17 20:00 (Aspirin Chew) 81 mg DAILY CHEW 08/31/17 09:00 09/02/17 09:19 (Lipitor) 80 mg HS PO 08/30/17 21:00 09/01/17 20:42 (Plavix) 75 mg DAILY PO 08/31/17 09:00 09/02/17 08:58 (Aricept) 10 mg HS PO 08/30/17 21:00 09/01/17 20:42 (Lopressor) 12.5 mg BID PO 08/30/17 21:00 09/02/17 08:58 (Lasix Inj) 20 mg BID@18 IV PUSH 08/31/17 18:00 09/02/17 09:03 Patient Own Medication PT OWN MED: (Exemest... HS PO 08/31/17 21:00 09/01/17 20:42 A/P Assessment and Plan 1. CHF: Unknown EF. BNP 1767. CXR w/ bilateral pleural effusions. on strict Is and Os, Encourage ambulation continue IV diuresis. 2. Equivocal Troponin elevation, continue Cardiac Enzymes, Aspirin 3. Severe : Following w/ Dr. Mercado, s/p Cardiac Cath 08/01/17 w/ severe Aortic Stenosis, scheduled for surgical intervention TAVR on Saturday, recommended to continue Lasix IV BID, on hold ARB. continue Aspirin and Plavix. as per Cardiology will re schedule procedure, Doctor Jess will prefer to discharge the patient and re schedule TAVR 4. Renal Insufficiency: Acute on Chronic. Creatinine trending down on diuretics. 5. Elevated LFTs probable related to hepatic congestion. Improving. 6. Hypokalemia replaced and following. DVT Prophylaxis: SCD/Teds. Discharge Planning Once cleared by personnel placement specialist. Jus Gastelum MD Sep 02, 2017 16:12
[2017-09-02] MEDS ORDERED: POTASSIUM CHLORIDE 25 MEQ EFFERVESCENT TAB PO ONE (17:00)
[2017-09-02] MEDS: ATORVASTATIN 80 MG TAB PO SCH (20:23)
[2017-09-02] MEDS: DONEPEZIL HCL 5 MG TAB PO SCH (20:24)
[2017-09-02] MEDS: EXEMESTANE 25 MG PO SCH (20:26)
[2017-09-03] VITALS (28 sets, daily range): BP systolic 106–119; BP diastolic 46–63; PULSE 62–113; RESP 16–19; TEMP 97.3–98.6; O2SAT 95–100
[2017-09-03 05:34] LABS: BICARBONATE 30.3 MEQ/L (21.0-32.0); CALCIUM 8.8 MG/DL (8.5-10.1); CREATININE 1.62 MG/DL (0.50-1.00); MAGNESIUM 2.5 MG/DL (1.5-2.5)
[2017-09-03 05:35] LABS: PHOSPHORUS 2.8 MG/DL (2.5-4.9)
[2017-09-03] MEDS: METOPROLOL TARTRATE 25 MG TAB PO SCH ×2 (09:31→21:05)
[2017-09-03] MEDS: CLOPIDOGREL 75 MG TAB PO SCH (09:31)
[2017-09-03] MEDS: ASPIRIN 81 MG CHEW TAB CHEW SCH (09:31)
[2017-09-03] MEDS: SODIUM CHLORIDE 0.9% FLUSH 10 ML FLUSH IV FLUSH SCH ×2 (09:31→21:04)
[2017-09-03] MEDS: FUROSEMIDE 20 MG/2 ML VIAL IV PUSH SCH (09:31)
[2017-09-03] MEDS: DOCUSATE SODIUM 50 MG/SENNA 8.6 MG TAB PO SCH ×2 (09:32→21:05)
--- NOTE | 2017-09-03 10:08 | PD.CARD.PN ---
Subjective Subjective Remarks Over the weekend events noted Objective Medications Current Medications Medications (Trade) Dose Ordered Sig/Farzaneh Route Start Time Stop Time Status Last Admin (NS Flush) 2 ml UNSCH PRN IV FLUSH 08/30/17 20:00 (NS Flush) 2 ml BID IV FLUSH 08/30/17 21:00 09/03/17 09:31 (Zofran Inj) 4 mg Q6H PRN IVP 08/30/17 20:00 (Tylenol) 650 mg Q6H PRN PO 08/30/17 20:00 ([place] 5-325 Mg) 1 tab Q4H PRN PO 08/30/17 20:00 (Morphine Inj) 1 mg Q3H PRN IV PUSH 08/30/17 20:00 (Pooja-Colace) 1 tab BID PO 08/30/17 21:00 09/01/17 09:00 (Milk Of Magnesia Liq) 30 ml Q12H PRN PO 08/30/17 20:00 (Senokot) 17.2 mg Q12H PRN PO 08/30/17 20:00 (Dulcolax Supp) 10 mg DAILY PRN RECTAL 08/30/17 20:00 (Lactulose Liq) 30 ml DAILY PRN PO 08/30/17 20:00 (Aspirin Chew) 81 mg DAILY CHEW 08/31/17 09:00 09/03/17 09:31 (Lipitor) 80 mg HS PO 08/30/17 21:00 09/02/17 20:23 (Plavix) 75 mg DAILY PO 08/31/17 09:00 09/03/17 09:31 (Aricept) 10 mg HS PO 08/30/17 21:00 09/02/17 20:24 (Lopressor) 12.5 mg BID PO 08/30/17 21:00 09/03/17 09:31 (Lasix Inj) 20 mg BID@ IV PUSH 08/31/17 18:00 09/03/17 09:31 Patient Own Medication PT OWN MED: (Exemest... HS PO 08/31/17 21:00 09/01/17 20:42 Vital Signs / I&O Vital Signs Date Time Temp Pulse Resp B/P (MAP) Pulse Ox O2 Delivery O2 Flow Rate FiO2 09/03/17 10:03 76 09/03/17 09:00 74 1/16/18 08:00 74 09/03/17 07:33 97.6 79 18 119/57 (77) 98 09/03/17 07:00 67 09/03/17 06:35 100 09/03/17 05:31 66 09/03/17 04:49 62 09/03/17 03:02 97.4 66 17 106/46 (66) 95 09/03/17 03:02 66 09/03/17 02:10 113 09/03/17 01:08 68 09/03/17 00:16 62 09/02/17 23:45 68 09/02/17 23:45 97.9 74 18 122/56 (78) 94 09/02/17 22:04 72 09/02/17 21:06 100 09/02/17 20:35 72 09/02/17 19:25 97.8 81 20 122/55 (77) 98 09/02/17 19:25 86 09/02/17 18:18 79 09/02/17 17:08 75 09/02/17 16:05 68 09/02/17 15:53 98.1 77 18 105/48 (67) 99 09/02/17 15:04 71 09/02/17 14:46 79 09/02/17 13:00 74 09/02/17 12:00 72 09/02/17 11:37 97.5 68 18 100/45 (63) 100 09/02/17 11:00 65 09/02/17 10:21 74 I/O 09/02/17 09/02/17 09/02/17 09/03/17 09/03/17 09/03/17 07:00 15:00 23:00 07:00 15:00 23:00 Intake Total 240 ml 810 ml 320 ml Output Total 200 ml 300 ml 300 ml Balance 40 ml 510 ml 20 ml Intake Oral 240 ml 810 ml 320 ml Output Urine Total 200 ml 300 ml 300 ml # Voids 2 3 # Bowel Movements 2 1 1 Physical Exam GENERAL: Well-nourished, well-developed patient. SKIN: Warm and dry. HEAD: Normocephalic. EYES: No scleral icterus. No injection or drainage. NECK: Supple, trachea midline. No JVD or lymphadenopathy. CARDIOVASCULAR: Regular rate and rhythm without murmurs, gallops, or rubs. RESPIRATORY: Breath sounds equal bilaterally. No accessory muscle use. Poor inspiratory effort GASTROINTESTINAL: Abdomen soft, non-tender, nondistended. EXTREMITIES: No cyanosis, or edema. NEUROLOGICAL: Awake, alert, and oriented x 3. Non-focal. Laboratory Laboratory Tests Test 09/03/17 03:25 Blood Urea Nitrogen 63 MG/DL Creatinine 1.62 MG/DL Random Glucose 101 MG/DL Calcium Level 8.8 MG/DL Phosphorus Level 2.8 MG/DL Magnesium Level 2.5 MG/DL Sodium Level 141 MEQ/L Potassium Level 3.9 MEQ/L Chloride Level 102 MEQ/L Carbon Dioxide Level 30.3 MEQ/L Anion Gap 9 MEQ/L Estimat Glomerular Filtration Rate 30 ML/MIN Assessment and Plan Problem List: (1) Severe aortic stenosis ICD Codes: I35.0 - Nonrheumatic aortic (valve) stenosis Plan: Admitted with acute on chronic HF in the setting of severe . Doing better with diuresis. TAVR cancelled and rescheduled for next week. Recommendations: 1. Strict I&O 2. Transition to PO diuresis 3. Low salt diet 4. PT/OT 5. Encourage ambulation and incentive spirometry 6. Hold ACEi/ARB and nephrotoxic drugs given FABRICIO 7. Avoid electrolytes abnormalities Stable from CV standpoint to d/c home (2) CHF (congestive heart failure) ICD Codes: I50.9 - Heart failure, unspecified Mercado-Frederick Jose MD Sep 03, 2017 10:07
--- NOTE | 2017-09-03 15:02 | HHI.PR ---
Subjective Remarks This is a pleasant 87 y/o Female with Breast Cancer, Hypertension, Hyperlipidemia, CHF, CAD and Severe Aortic Stenosis, brought in due to Shortness of breath, Recent Cardiac Cath 08/01/[address] Mercado w / severe [place] vessel disease, patent grafts and severe aortic stenosis. Per Son, pt scheduled for Aortic Valve Replacement on Saturday. she has Thrombocytopenia FABRICIO on CKD, CXR with mild positive fluid balance, small bilateral pleural effusions. Given Lasix in ER. 09/02: Seen in her bedroom and discussed with nurse and guest experience specialist doctor Frederick Ojeda recommended strict Is and Os Gentle IV diuresis, Low salt diet, PT and OT, encourage ambulation, no nausea, vomit or diarrhea as per Doctor Jess won't perform Aortic Valve replacement prefer to discharge home and follow as outpatient to re schedule surgery. 09/03: Stable in her bedroom, improving clinically, but her renal function is decreased, was discussed with guest experience specialist Doctor Jess recommended to stop Furosemide and follow in am tomorrow, related to diuretics given, no nausea, vomit or diarrhea will discharge to SNF tomorrow as recommended by Physical therapy. Objective Vital Signs Date Time Temp Pulse Resp B/P (MAP) Pulse Ox O2 Delivery O2 Flow Rate FiO2 09/03/17 14:00 68 09/03/17 13:00 84 09/03/17 12:13 72 09/03/17 11:43 63 09/03/17 11:07 97.3 71 16 113/47 (69) 99 09/03/17 10:03 76 09/03/17 09:00 74 09/03/17 08:00 74 09/03/17 07:33 97.6 79 18 119/57 (77) 98 09/03/17 07:00 67 09/03/17 06:35 100 09/03/17 05:31 66 09/03/17 04:49 62 09/03/17 03:02 97.4 66 17 106/46 (66) 95 09/03/17 03:02 66 09/03/17 02:10 113 09/03/17 01:08 68 09/03/17 00:16 62 09/02/17 23:45 68 09/02/17 23:45 97.9 74 18 122/56 (78) 94 09/02/17 22:04 72 09/02/17 21:06 100 09/02/17 20:35 72 09/02/17 19:25 97.8 81 20 122/55 (77) 98 09/02/17 19:25 86 09/02/17 18:18 79 09/02/17 17:08 75 09/02/17 16:05 68 09/02/17 15:53 98.1 77 18 105/48 (67) 99 09/02/17 15:04 71 I/O 09/02/17 09/02/17 09/02/17 09/03/17 09/03/17 09/03/17 07:00 15:00 23:00 07:00 15:00 23:00 Intake Total 240 ml 810 ml 320 ml Output Total 200 ml 300 ml 300 ml Balance 40 ml 510 ml 20 ml Intake Oral 240 ml 810 ml 320 ml Output Urine Total 200 ml 300 ml 300 ml # Voids 2 3 # Bowel Movements 2 1 1 Result Diagram: 08/31/17 0434 09/03/17 0325 Imaging Last Impressions Chest X-Ray 09/02/17 0600 Signed Impressions: Service Date/Time: Saturday, September 02, 2017 03:55 - CONCLUSION: 1. Mild bilateral pleural effusions. 2. Increased density at the bases especially on the right represents some accompanying atelectasis or consolidation. Larry Luz MD Liver Ultrasound 09/01/17 0000 Signed Impressions: Service Date/Time: Friday, September 01, 2017 22:35 - CONCLUSION: 1. Heterogeneous liver with nodularity to the liver margin concerning for cirrhosis. 2. Gallstones. 3. Large bilateral pleural effusions. Larry Luz MD Procedures None Other Results Laboratory Tests Test 08/30/17 17:45 08/31/17 04:25 08/31/17 04:34 09/02/17 03:34 Prothrombin Time 11.4 SEC Prothromb Time International Ratio 1.1 RATIO Activated Partial Thromboplast Time 22.6 SEC Total Creatine Kinase 723 U/L Creatine Kinase MB 6.3 NG/ML Creatine Kinase MB % 0.9 % B-Type Natriuretic Peptide 1767 PG/ML Troponin I 0.13 NG/ML White Blood Count 6.5 TH/MM3 Red Blood Count 4.10 MIL/MM3 Hemoglobin 12.8 GM/DL Hematocrit 38.2 % Mean Corpuscular Volume 93.1 FL Mean Corpuscular Hemoglobin 31.1 PG Mean Corpuscular Hemoglobin Concent 33.4 % Red Cell Distribution Width 14.6 % Platelet Count 97 TH/MM3 Mean Platelet Volume 10.2 FL Neutrophils (%) (Auto) 76.1 % Lymphocytes (%) (Auto) 14.6 % Monocytes (%) (Auto) 8.2 % Eosinophils (%) (Auto) 0.4 % Basophils (%) (Auto) 0.7 % Neutrophils # (Auto) 4.9 TH/MM3 Lymphocytes # (Auto) 0.9 TH/MM3 Monocytes # (Auto) 0.5 TH/MM3 Eosinophils # (Auto) 0.0 TH/MM3 Basophils # (Auto) 0.0 TH/MM3 CBC Comment AUTO DIFF Differential Comment AUTO DIFF CONFIRMED Platelet Estimate LOW Platelet Morphology Comment ENLARGED Ovalocytes 1+ Hematology Comments Blood Urea Nitrogen 56 MG/DL Creatinine 1.57 MG/DL Random Glucose 104 MG/DL Total Protein 7.0 GM/DL Albumin 3.3 GM/DL Calcium Level 9.1 MG/DL Alkaline Phosphatase 266 U/L Aspartate Amino Transf (AST/SGOT) 79 U/L Alanine Aminotransferase (ALT/SGPT) 75 U/L Total Bilirubin 0.9 MG/DL Sodium Level 138 MEQ/L Potassium Level 3.5 MEQ/L Chloride Level 102 MEQ/L Carbon Dioxide Level 26.3 MEQ/L Test 09/03/17 03:25 Blood Urea Nitrogen 63 MG/DL Creatinine 1.62 MG/DL Random Glucose 101 MG/DL Calcium Level 8.8 MG/DL Phosphorus Level 2.8 MG/DL Magnesium Level 2.5 MG/DL Sodium Level 141 MEQ/L Potassium Level 3.9 MEQ/L Chloride Level 102 MEQ/L Carbon Dioxide Level 30.3 MEQ/L Anion Gap 9 MEQ/L Estimat Glomerular Filtration Rate 30 ML/MIN Objective Remarks GENERAL: NO acute distress. pleasantly confused. HEENT: PERRLA, EOMI. No scleral icterus or conjunctival pallor. No lid lag or facial droop. CARDIOVASCULAR: Regular rate and rhythm. No obvious murmurs to auscultation. No chest tenderness to palpation. RESPIRATORY: No obvious rhonchi or wheezing. Clear to auscultation. Breath sounds equal bilaterally. GASTROINTESTINAL: Abdomen soft, non-tender, nondistended. BS normal. MUSCULOSKELETAL: Extremities without clubbing, cyanosis, or edema. No obvious deformities. NEUROLOGICAL: Awake, alert. No focal neurologic deficits. confused. Medications and IVs Current Medications Medications (Trade) Dose Ordered Sig/Farzaneh Route Start Time Stop Time Status Last Admin (NS Flush) 2 ml UNSCH PRN IV FLUSH 08/30/17 20:00 (NS Flush) 2 ml BID IV FLUSH 08/30/17 21:00 09/03/17 09:31 (Zofran Inj) 4 mg Q6H PRN IVP 08/30/17 20:00 (Tylenol) 650 mg Q6H PRN PO 08/30/17 20:00 ([place] 5-325 Mg) 1 tab Q4H PRN PO 08/30/17 20:00 (Morphine Inj) 1 mg Q3H PRN IV PUSH 08/30/17 20:00 (Pooja-Colace) 1 tab BID PO 08/30/17 21:00 09/01/17 09:00 (Milk Of Magnesia Liq) 30 ml Q12H PRN PO 08/30/17 20:00 (Senokot) 17.2 mg Q12H PRN PO 08/30/17 20:00 (Dulcolax Supp) 10 mg DAILY PRN RECTAL 08/30/17 20:00 (Lactulose Liq) 30 ml DAILY PRN PO 08/30/17 20:00 (Aspirin Chew) 81 mg DAILY CHEW 08/31/17 09:00 09/03/17 09:31 (Lipitor) 80 mg HS PO 08/30/17 21:00 09/02/17 20:23 (Plavix) 75 mg DAILY PO 08/31/17 09:00 09/03/17 09:31 (Aricept) 10 mg HS PO 08/30/17 21:00 09/02/17 20:24 (Lopressor) 12.5 mg BID PO 08/30/17 21:00 09/03/17 09:31 (Lasix Inj) 20 mg BID@ IV PUSH 08/31/17 18:00 09/03/17 09:31 Patient Own Medication PT OWN MED: (Exemest... HS PO 08/31/17 21:00 09/01/17 20:42 A/P Assessment and Plan 1. CHF: Unknown EF. BNP 1767. CXR w/ bilateral pleural effusions. on strict Is and Os, Encourage ambulation on IV diuresis, stopped at this time in virtue of worsening renal function. 2. Equivocal Troponin elevation, continue Cardiac Enzymes, Aspirin 3. Severe : Following w/ Dr. Mercado, s/p Cardiac Cath 08/01/17 w/ severe Aortic Stenosis, scheduled for surgical intervention TAVR on Saturday, recommended to continue Lasix IV BID, on hold ARB. continue Aspirin and Plavix. as per Cardiology will re schedule procedure, Doctor Jess will prefer to discharge the patient and re schedule TAVR for Next week. 4. Renal Insufficiency: Acute on Chronic. creatinine worsening to 1.62 5. Elevated LFTs probable related to hepatic congestion. Improving. 6. Hypokalemia replaced DVT Prophylaxis: SCD/Teds. Discharge Planning Cleared by Cardiology if improving renal function by tomorrow. Jus Gastelum MD Sep 03, 2017 15:02
[2017-09-03] MEDS: EXEMESTANE 25 MG PO SCH (21:04)
[2017-09-03] MEDS: DONEPEZIL HCL 5 MG TAB PO SCH (21:04)
[2017-09-03] MEDS: ATORVASTATIN 80 MG TAB PO SCH (21:05)
[2017-09-04] VITALS (28 sets, daily range): BP systolic 103–130; BP diastolic 46–59; PULSE 64–100; RESP 17–22; TEMP 97.4–98.2; O2SAT 97–99
[2017-09-04 05:50] LABS: BICARBONATE 30.3 MEQ/L (21.0-32.0); CALCIUM 8.2 MG/DL (8.5-10.1); CREATININE 1.25 MG/DL (0.50-1.00)
[2017-09-04] MEDS ORDERED: FUROSEMIDE 20 MG/2 ML VIAL IV PUSH ONE (06:30)
--- NOTE | 2017-09-04 06:58 | RADRPT ---
EXAM DATE/TIME: 09/04/2017 06:36 [place] COMPARISON: CHEST SINGLE AP, September 02, 2017, 3:55. INDICATIONS : Congestion, short of breath. MEDICAL HISTORY : None. SURGICAL HISTORY : Pacemaker. ENCOUNTER: Subsequent ACUITY: 2 days PAIN SCORE: 0/10 LOCATION: Bilateral chest FINDINGS: The patient is status post sternotomy. There is a pacing device in place from the left subclavian catherine galvin. The heart size is normal. There is increased density bases bilaterally. CONCLUSION: Increased density at the bases bilaterally likely related to bilateral effusions with some accompanyi ng atelectasis or consolidation at the bases. Larry Luz MD on September 04, 2017 at 6:55 Board Certified Radiologist. This report was verified electronically.
[2017-09-04] MEDS: SODIUM CHLORIDE 0.9% FLUSH 10 ML FLUSH IV FLUSH SCH ×2 (09:00→20:28)
[2017-09-04] MEDS: CLOPIDOGREL 75 MG TAB PO SCH (09:07)
[2017-09-04] MEDS: METOPROLOL TARTRATE 25 MG TAB PO SCH ×2 (09:07→20:29)
[2017-09-04] MEDS: DOCUSATE SODIUM 50 MG/SENNA 8.6 MG TAB PO SCH ×2 (09:07→20:29)
[2017-09-04] MEDS: ASPIRIN 81 MG CHEW TAB CHEW SCH (09:07)
--- NOTE | 2017-09-04 11:09 | HHI.FF ---
Face to Face Verification Diagnosis: (1) CHF exacerbation (2) Severe aortic stenosis Physical Therapy Order: Evaluate and Treat, Improve ambulation, Strength and gait training Home Health Nursing Order: Medical education Signs/symptoms of disease process CHF education Oxygen administration education Medication education-adverse effect Nursing assessment with vital signs I have seen patient Daisy Lindsay on 09/04/17. My clinical findings support the need for the requested home health care services because: Ltd mobility - disease progression I certify that my clinical findings support that this patient is homebound because: Unsafe to leave home unassisted Jus Gastelum MD Sep 04, 2017 11:08
--- NOTE | 2017-09-04 11:15 | HHI.PR ---
Subjective Remarks This is a pleasant 87 y/o Female with Breast Cancer, Hypertension, Hyperlipidemia, CHF, CAD and Severe Aortic Stenosis, brought in due to Shortness of breath, Recent Cardiac Cath 08/01/[address] Mercado w / severe [place] vessel disease, patent grafts and severe aortic stenosis. Per Son, pt scheduled for Aortic Valve Replacement on Saturday. she has Thrombocytopenia FABRICIO on CKD, CXR with mild positive fluid balance, small bilateral pleural effusions. Given Lasix in ER. 09/02: Seen in her bedroom and discussed with nurse and [employer] operations specialist doctor Frederick Ojeda recommended strict Is and Os Gentle IV diuresis, Low salt diet, PT and OT, encourage ambulation, no nausea, vomit or diarrhea as per Doctor Jess won't perform Aortic Valve replacement prefer to discharge home and follow as outpatient to re schedule surgery. 09/03: Stable in her bedroom, improving clinically, but her renal function is decreased, was discussed with [employer] operations specialist Doctor Jess recommended to stop Furosemide and follow in am tomorrow, related to diuretics given. 09/04: Seen in her bedroom, no nausea, vomit or diarrhea, improving renal function to 1.25, as recommended by PT placed order for discharge to SNF but her Family refused, asked to go home on [facility]. during the night the patient developed shortness of breath and new CXR performed but even say worsening I can see there is Improvement of her pathology, she is stable at this time will continue diuretics at home but lower dose and no salt on her diet. Objective Vital Signs Date Time Temp Pulse Resp B/P (MAP) Pulse Ox O2 Delivery O2 Flow Rate FiO2 09/04/17 10:00 70 09/04/17 09:00 68 09/04/17 08:11 97.4 73 17 107/50 (69) 97 09/04/17 08:00 78 09/04/17 07:00 64 09/04/17 06:22 68 09/04/17 05:30 78 09/04/17 04:04 72 09/04/17 03:35 69 09/04/17 03:35 98.1 72 20 130/59 (82) 98 09/04/17 02:35 74 09/04/17 01:11 72 09/04/17 00:18 73 09/03/17 23:34 98.0 69 18 114/63 (80) 96 09/03/17 23:34 68 09/03/17 22:08 70 09/03/17 21:00 78 09/03/17 20:00 68 09/03/17 19:50 73 09/03/17 19:40 98.2 75 19 117/53 (74) 98 09/03/17 18:08 78 09/03/17 17:00 74 09/03/17 16:01 76 09/03/17 15:35 98.6 73 16 115/50 (71) 100 09/03/17 15:13 71 09/03/17 14:00 68 09/03/17 13:00 84 09/03/17 12:13 72 09/03/17 11:43 63 I/O 09/03/17 09/03/17 09/03/17 09/04/17 09/04/17 09/04/17 07:00 15:00 23:00 07:00 15:00 23:00 Intake Total 320 ml 891 ml 240 ml Output Total 300 ml 450 ml 350 ml Balance 20 ml 441 ml -110 ml Intake Oral 320 ml 891 ml 240 ml Output Urine Total 300 ml 450 ml 350 ml # Voids 3 2 # Bowel Movements 1 0 0 Result Diagram: 08/31/17 0434 09/04/17 0430 Imaging Last Impressions Chest X-Ray 09/04/17 0000 Signed Impressions: Service Date/Time: Monday, September 04, 2017 06:36 - CONCLUSION: Increased density at the bases bilaterally likely related to bilateral effusions with some accompanying atelectasis or consolidation at the bases. Larry Luz MD Liver Ultrasound 09/01/17 0000 Signed Impressions: Service Date/Time: Friday, September 01, 2017 22:35 - CONCLUSION: 1. Heterogeneous liver with nodularity to the liver margin concerning for cirrhosis. 2. Gallstones. 3. Large bilateral pleural effusions. Larry Luz MD Procedures None Other Results Last Impressions Chest X-Ray 09/04/17 0000 Signed Impressions: Service Date/Time: Monday, September 04, 2017 06:36 - CONCLUSION: Increased density at the bases bilaterally likely related to bilateral effusions with some accompanying atelectasis or consolidation at the bases. Larry Luz MD Liver Ultrasound 09/01/17 0000 Signed Impressions: Service Date/Time: Friday, September 01, 2017 22:35 - CONCLUSION: 1. Heterogeneous liver with nodularity to the liver margin concerning for cirrhosis. 2. Gallstones. 3. Large bilateral pleural effusions. Larry Luz MD Objective Remarks GENERAL: NO acute distress. flat affect. HEENT: PERRLA, EOMI. No scleral icterus or conjunctival pallor. No lid lag or facial droop. CARDIOVASCULAR: Regular rate and rhythm. No obvious murmurs to auscultation. No chest tenderness to palpation. RESPIRATORY: No obvious rhonchi or wheezing. Clear to auscultation. Breath sounds equal bilaterally. GASTROINTESTINAL: Abdomen soft, non-tender, nondistended. BS normal. MUSCULOSKELETAL: Extremities without clubbing, cyanosis, or edema. No obvious deformities. NEUROLOGICAL: Awake, alert. No focal neurologic deficits. confused. Medications and IVs Current Medications Medications (Trade) Dose Ordered Sig/Farzaneh Route Start Time Stop Time Status Last Admin (NS Flush) 2 ml UNSCH PRN IV FLUSH 08/30/17 20:00 (NS Flush) 2 ml BID IV FLUSH 08/30/17 21:00 09/04/17 09:00 (Zofran Inj) 4 mg Q6H PRN IVP 08/30/17 20:00 (Tylenol) 650 mg Q6H PRN PO 08/30/17 20:00 ([place] 5-325 Mg) 1 tab Q4H PRN PO 08/30/17 20:00 (Morphine Inj) 1 mg Q3H PRN IV PUSH 08/30/17 20:00 (Pooja-Colace) 1 tab BID PO 08/30/17 21:00 09/04/17 09:07 (Milk Of Magnesia Liq) 30 ml Q12H PRN PO 08/30/17 20:00 (Senokot) 17.2 mg Q12H PRN PO 08/30/17 20:00 (Dulcolax Supp) 10 mg DAILY PRN RECTAL 08/30/17 20:00 (Lactulose Liq) 30 ml DAILY PRN PO 08/30/17 20:00 (Aspirin Chew) 81 mg DAILY CHEW 08/31/17 09:00 09/04/17 09:07 (Lipitor) 80 mg HS PO 08/30/17 21:00 09/03/17 21:05 (Plavix) 75 mg DAILY PO 08/31/17 09:00 09/04/17 09:07 (Aricept) 10 mg HS PO 08/30/17 21:00 09/03/17 21:04 (Lopressor) 12.5 mg BID PO 08/30/17 21:00 09/04/17 09:07 Patient Own Medication PT OWN MED: (Exemest... HS PO 08/31/17 21:00 09/03/17 21:04 A/P Assessment and Plan 1. CHF: Unknown EF. BNP 1767. CXR w/ bilateral pleural effusions. on strict Is and Os, Encourage ambulation on IV diuresis, as discussed with Doctor Mercado asked me to give the patient a Diuretic Holiday the patient improved her renal function meaning her renal function is worsening due to the use of diuretics, but also worsened during the night her renal function, she was supposed to go to SNF with Lasix 40 mg BID but after discussed with nurse we will Call her Primary [employer] operations specialist Doctor Mercado, the patient may need the procedure sooner and performed during this stay. 2. Equivocal Troponin elevation, continue Cardiac Enzymes, Aspirin 3. Severe : Following w/ Dr. Mercado, s/p Cardiac Cath 08/01/17 w/ severe Aortic Stenosis, scheduled for surgical intervention TAVR on Saturday, recommended to continue Lasix IV BID, on hold ARB. continue Aspirin and Plavix. as per Cardiology will re schedule procedure, Doctor Mercado will prefer to discharge the patient and re schedule TAVR for Next week. will ask doctor Mercado if is preferable for the procedure to be done while in house. 4. Renal Insufficiency: Acute on Chronic. Improving with diuretics holiday 5. Elevated LFTs probable related to hepatic congestion. Improving. 6. Hypokalemia replaced DVT Prophylaxis: SCD/Teds. Discharge Planning Even cleared by Cardiology will follow new recommendations before discharge, she worsened her respiratory function when was discontinued diuretics as recommended by Doctor Mercado, improved renal function but worsening respiratory status. Jus Gastelum MD Sep 04, 2017 11:15
[2017-09-04] MEDS ORDERED: FURO1TAB60 PO (11:23)
--- NOTE | 2017-09-04 13:07 | HHI.DS ---
Discharge Summary Admission Date Sep 02, 2017 at 14:38 Discharge Date: Sep 04, 2017 Admitting Diagnosis CHF exacerbation (1) CHF (congestive heart failure) ICD Code: I50.9 - Heart failure, unspecified Diagnosis: Principal (2) Elevated troponin ICD Code: R74.8 - Abnormal levels of other serum enzymes Diagnosis: Principal (3) Renal insufficiency ICD Code: N28.9 - Disorder of kidney and ureter, unspecified Diagnosis: Principal (4) Severe aortic stenosis ICD Code: I35.0 - Nonrheumatic aortic (valve) stenosis Diagnosis: Principal Procedures None Brief History - From Admission This is an 87-year-old female with a PMH of Breast CTA, HTN, Hyperlipidemia, CHF (Unknown EF), CAD and Severe Aortic Stenosis who was brought to the ER by Son secondary to SOB x3 days. Much of the history provided by Son as pt poor historian. Son states pt having SOB, worse w/ exertion, severe, alleviated by rest. Recent Cardiac Cath 08/01/[address] Mercado w/ severe shoshone-bannock vessel disease, patent grafts and severe aortic stenosis. Per Son, pt scheduled for Aortic Valve Replacement on Saturday. On arrival, BP 116/50, HR 77, O2 sat 99% on RA , Temp 99.2. CBC unremarkable except for platelets 129, previously 133 on 08/01. Creatinine 1.45, producing 1.20 on 08/01/17. Troponin 0.12. BNP 1767. INR 1.1. CXR with mild positive fluid balance, small bilateral pleural effusions. S/p Lasix 20mg IV CBC/BMP: 08/31/17 0434 09/04/17 0430 Significant Findings Laboratory Tests Test 09/02/17 03:34 09/03/17 03:25 09/04/17 04:30 Blood Urea Nitrogen 56 MG/DL (7-18) 63 MG/DL (7-18) 60 MG/DL (7-18) Creatinine 1.57 MG/DL (0.50-1.00) 1.62 MG/DL (0.50-1.00) 1.25 MG/DL (0.50-1.00) Albumin 3.3 GM/DL (3.4-5.0) Alkaline Phosphatase 266 U/L (45-117) Aspartate Amino Transf (AST/SGOT) 79 U/L (15-37) Alanine Aminotransferase (ALT/SGPT) 75 U/L (10-53) Estimat Glomerular Filtration Rate 31 ML/MIN (>89) 30 ML/MIN (>89) 41 ML/MIN (>89) Random Glucose 114 MG/DL (74-106) Calcium Level 8.2 MG/DL (8.5-10.1) Imaging Last Impressions Chest X-Ray 09/04/17 0000 Signed Impressions: Service Date/Time: Monday, September 04, 2017 06:36 - CONCLUSION: Increased density at the bases bilaterally likely related to bilateral effusions with some accompanying atelectasis or consolidation at the bases. Larry Luz MD Liver Ultrasound 09/01/17 0000 Signed Impressions: Service Date/Time: Friday, September 01, 2017 22:35 - CONCLUSION: 1. Heterogeneous liver with nodularity to the liver margin concerning for cirrhosis. 2. Gallstones. 3. Large bilateral pleural effusions. Larry Luz MD PE at Discharge GENERAL: NO acute distress. flat affect. HEENT: PERRLA, EOMI. No scleral icterus or conjunctival pallor. No lid lag or facial droop. CARDIOVASCULAR: Regular rate and rhythm. No obvious murmurs to auscultation. No chest tenderness to palpation. RESPIRATORY: No obvious rhonchi or wheezing. Clear to auscultation. Breath sounds equal bilaterally. GASTROINTESTINAL: Abdomen soft, non-tender, nondistended. BS normal. MUSCULOSKELETAL: Extremities without clubbing, cyanosis, or edema. No obvious deformities. NEUROLOGICAL: Awake, alert. No focal neurologic deficits. confused. Hospital Course This is a pleasant 87 y/o Female with Breast Cancer, Hypertension, Hyperlipidemia, CHF, CAD and Severe Aortic Stenosis, brought in due to Shortness of breath, Recent Cardiac Cath 08/01/[address] Mercado w / severe shoshone-bannock vessel disease, patent grafts and severe aortic stenosis. Per Son, pt scheduled for Aortic Valve Replacement on Saturday. she has Thrombocytopenia FABRICIO on CKD, CXR with mild positive fluid balance, small bilateral pleural effusions. Given Lasix in ER. 09/02: Seen in her bedroom and discussed with nurse and warehouse distribution specialist doctor Frederick Ojeda recommended strict Is and Os Gentle IV diuresis, Low salt diet, PT and OT, encourage ambulation, no nausea, vomit or diarrhea as per Doctor Jess won't perform Aortic Valve replacement prefer to discharge home and follow as outpatient to re schedule surgery. 09/03: Stable in her bedroom, improving clinically, but her renal function is decreased, was discussed with warehouse distribution specialist Doctor Jess recommended to stop Furosemide and follow in am tomorrow, related to diuretics given. 09/04: Seen in her bedroom, no nausea, vomit or diarrhea, improving renal function to 1.25, as recommended by PT placed order for discharge to SNF but her Family refused, asked to go home on [facility]. during the night the patient developed shortness of breath and new CXR performed but even say worsening I can see there is Improvement of her pathology, she is stable at this time will continue diuretics at home but lower dose and no salt on her diet. Assessment and Plan 1. CHF: Unknown EF. BNP 1767. CXR w/ bilateral pleural effusions. on strict Is and Os, Encourage ambulation on IV diuresis, as discussed with Doctor Mercado asked me to give the patient a Diuretic Holiday the patient improved her renal function meaning her renal function is worsening due to the use of diuretics, but also worsened during the night her renal function, she was supposed to go to SNF with Lasix 40 mg BID but after discussed with nurse we will Call her Primary warehouse distribution specialist Doctor Mercado, the patient may need the procedure sooner and performed during this stay. 2. Equivocal Troponin elevation, continue Cardiac Enzymes, Aspirin 3. Severe : Following w/ Dr. Mercado, s/p Cardiac Cath 08/01/17 w/ severe Aortic Stenosis, scheduled for surgical intervention TAVR on Saturday, recommended to continue Lasix IV BID, on hold ARB. continue Aspirin and Plavix. as per Cardiology will re schedule procedure, Doctor Mercado will prefer to discharge the patient and re schedule TAVR for Next week. will ask doctor Mercado if is preferable for the procedure to be done while in house. 4. Renal Insufficiency: Acute on Chronic. Improving with diuretics holiday 5. Elevated LFTs probable related to hepatic congestion. Improving. 6. Hypokalemia replaced DVT Prophylaxis: SCD/Teds. Discharge Planning Even cleared by Cardiology will follow new recommendations before discharge, she worsened her respiratory function when was discontinued diuretics as recommended by Doctor Jess, improved renal function but worsening respiratory status.\ at this time discussed with nurse and doctor Jess okay to discharge he and will schedule procedure as outpatient. Pt Condition on Discharge: Stable Discharge Disposition: Disch w/ Home Health Serv Discharge Time: > 30 minutes Discharge Instructions DIET: Follow Instructions for: Heart Healthy Diet Activities you can perform: Regular-No Restrictions Jus Gastelum MD Sep 04, 2017 13:07
[2017-09-04] MEDS: FUROSEMIDE 40 MG TAB PO SCH (19:12)
[2017-09-04] MEDS: EXEMESTANE 25 MG PO SCH (20:28)
[2017-09-04] MEDS: ATORVASTATIN 80 MG TAB PO SCH (20:29)
[2017-09-04] MEDS: DONEPEZIL HCL 5 MG TAB PO SCH (20:29)
[2017-09-05] VITALS (12 sets, daily range): BP systolic 102–127; BP diastolic 47–61; PULSE 66–88; RESP 16–20; TEMP 97.5–98.1; O2SAT 96–99
[2017-09-05] MEDS: FUROSEMIDE 40 MG TAB PO SCH (06:17)
[2017-09-05] MEDS: DOCUSATE SODIUM 50 MG/SENNA 8.6 MG TAB PO SCH (09:00)
[2017-09-05] MEDS: ASPIRIN 81 MG CHEW TAB CHEW SCH (09:26)
[2017-09-05] MEDS: CLOPIDOGREL 75 MG TAB PO SCH (09:26)
[2017-09-05] MEDS: SODIUM CHLORIDE 0.9% FLUSH 10 ML FLUSH IV FLUSH SCH (09:26)
[2017-09-05] MEDS: METOPROLOL TARTRATE 25 MG TAB PO SCH (09:26)
--- NOTE | 2017-09-05 11:39 | HHI.PR ---
Subjective Remarks Follow-up acute exacerbation of CHF 09/05/17-patient seen and examined, denies any significant shortness of breath and has no acute event overnight. She has been clear for discharge by cardiology. Objective Vitals Vital Signs Date Time Temp Pulse Resp B/P (MAP) Pulse Ox O2 Delivery O2 Flow Rate FiO2 09/05/17 10:00 74 09/05/17 09:00 66 09/05/17 08:00 97.5 68 16 105/48 (67) 98 09/05/17 08:00 88 09/05/17 07:00 66 09/05/17 06:15 68 09/05/17 05:18 75 09/05/17 04:33 72 09/05/17 03:50 97.9 86 20 127/61 (83) 96 09/05/17 03:50 71 09/05/17 02:11 72 09/05/17 01:11 69 09/05/17 00:13 71 09/04/17 23:40 98.2 70 18 110/49 (69) 97 09/04/17 23:23 70 09/04/17 22:30 70 09/04/17 21:40 100 09/04/17 20:03 75 09/04/17 19:48 75 09/04/17 19:12 98.0 76 19 116/51 (72) 99 09/04/17 18:14 81 09/04/17 17:04 72 09/04/17 16:00 71 09/04/17 15:22 98.0 78 22 118/54 (75) 99 09/04/17 15:00 90 09/04/17 13:09 76 09/04/17 12:00 72 09/04/17 11:40 97.8 68 18 103/46 (65) 98 I/O 09/04/17 09/04/17 09/04/17 09/05/17 09/05/17 09/05/17 07:00 15:00 23:00 07:00 15:00 23:00 Intake Total 240 ml 920 ml 204 ml Output Total 350 ml 600 ml 150 ml Balance -110 ml 320 ml 54 ml Intake Oral 240 ml 920 ml 204 ml Output Urine Total 350 ml 600 ml 150 ml # Voids 3 # Bowel Movements 0 1 3 Result Diagram: 09/04/17 0430 Imaging Last Impressions Chest X-Ray 09/04/17 0000 Signed Impressions: Service Date/Time: Monday, September 04, 2017 06:36 - CONCLUSION: Increased density at the bases bilaterally likely related to bilateral effusions with some accompanying atelectasis or consolidation at the bases. Larry Luz MD Liver Ultrasound 09/01/17 0000 Signed Impressions: Service Date/Time: Friday, September 01, 2017 22:35 - CONCLUSION: 1. Heterogeneous liver with nodularity to the liver margin concerning for cirrhosis. 2. Gallstones. 3. Large bilateral pleural effusions. Larry Luz MD Objective Remarks GENERAL: NAD SKIN: Warm and dry. HEAD: Normocephalic. EYES: No scleral icterus. No injection or drainage. NECK: Supple, trachea midline. No JVD or lymphadenopathy. CARDIOVASCULAR: Regular rate and rhythm without murmurs, gallops, or rubs. RESPIRATORY: Breath sounds equal bilaterally. No accessory muscle use. GASTROINTESTINAL: Abdomen soft, non-tender, nondistended. MUSCULOSKELETAL: No cyanosis, or edema. BACK: Nontender without obvious deformity. No CVA tenderness. Procedures None A/P Problem List: (1) CHF (congestive heart failure) ICD Code: I50.9 - Heart failure, unspecified (2) Elevated troponin ICD Code: R74.8 - Abnormal levels of other serum enzymes (3) Renal insufficiency ICD Code: N28.9 - Disorder of kidney and ureter, unspecified (4) Severe aortic stenosis ICD Code: I35.0 - Nonrheumatic aortic (valve) stenosis Assessment and Plan 87 year old female with 1. CHF: Unknown EF Currently stable on Lasix 40 mg BID/beta hedy Appreciate input from cardiology 2. Equivocal Troponin elevation, continue Cardiac Enzymes, Aspirin 3. Severe : Following w/ Dr. Mercado, s/p Cardiac Cath 08/01/17 w/ severe Aortic Stenosis Continue Aspirin and Plavix. Doctor Jess to re-schedule TAVR for Next week. 4. Renal Insufficiency: Acute on Chronic. Improving 5. Elevated LFTs probable related to hepatic congestion. Improving. 6. Hypokalemia replaced DVT Prophylaxis: SCD/Teds. Sukhi Johnson MD Sep 05, 2017 11:39
--- NOTE | 2017-09-05 11:41 | HHI.DS ---
Discharge Summary Admission Date Sep 02, 2017 at 14:38 Discharge Date: Sep 05, 2017 Admitting Diagnosis CHF exacerbation (1) CHF (congestive heart failure) ICD Code: I50.9 - Heart failure, unspecified Diagnosis: Principal (2) Elevated troponin ICD Code: R74.8 - Abnormal levels of other serum enzymes Diagnosis: Principal (3) Renal insufficiency ICD Code: N28.9 - Disorder of kidney and ureter, unspecified Diagnosis: Principal (4) Severe aortic stenosis ICD Code: I35.0 - Nonrheumatic aortic (valve) stenosis Diagnosis: Principal Procedures None Brief History - From Admission This is an 87-year-old female with a PMH of Breast CTA, HTN, Hyperlipidemia, CHF (Unknown EF), CAD and Severe Aortic Stenosis who was brought to the ER by Son secondary to SOB x3 days. Much of the history provided by Son as pt poor historian. Son states pt having SOB, worse w/ exertion, severe, alleviated by rest. Recent Cardiac Cath 08/01/[address] eMrcado w/ severe viejas vessel disease, patent grafts and severe aortic stenosis. Per Son, pt scheduled for Aortic Valve Replacement on Saturday. On arrival, BP 116/50, HR 77, O2 sat 99% on RA , Temp 99.2. CBC unremarkable except for platelets 129, previously 133 on 08/01. Creatinine 1.45, producing 1.20 on 08/01/17. Troponin 0.12. BNP 1767. INR 1.1. CXR with mild positive fluid balance, small bilateral pleural effusions. S/p Lasix 20mg IV CBC/BMP: 09/04/17 0430 Significant Findings Laboratory Tests Test 09/03/17 03:25 09/04/17 04:30 Blood Urea Nitrogen 63 MG/DL (7-18) 60 MG/DL (7-18) Creatinine 1.62 MG/DL (0.50-1.00) 1.25 MG/DL (0.50-1.00) Estimat Glomerular Filtration Rate 30 ML/MIN (>89) 41 ML/MIN (>89) Random Glucose 114 MG/DL (74-106) Calcium Level 8.2 MG/DL (8.5-10.1) Imaging Last Impressions Chest X-Ray 09/04/17 0000 Signed Impressions: Service Date/Time: Monday, September 04, 2017 06:36 - CONCLUSION: Increased density at the bases bilaterally likely related to bilateral effusions with some accompanying atelectasis or consolidation at the bases. Larry Luz MD Liver Ultrasound 09/01/17 0000 Signed Impressions: Service Date/Time: Friday, September 01, 2017 22:35 - CONCLUSION: 1. Heterogeneous liver with nodularity to the liver margin concerning for cirrhosis. 2. Gallstones. 3. Large bilateral pleural effusions. Larry Luz MD PE at Discharge GENERAL: NAD SKIN: Warm and dry. HEAD: Normocephalic. EYES: No scleral icterus. No injection or drainage. NECK: Supple, trachea midline. No JVD or lymphadenopathy. CARDIOVASCULAR: Regular rate and rhythm without murmurs, gallops, or rubs. RESPIRATORY: Breath sounds equal bilaterally. No accessory muscle use. GASTROINTESTINAL: Abdomen soft, non-tender, nondistended. MUSCULOSKELETAL: No cyanosis, or edema. BACK: Nontender without obvious deformity. No CVA tenderness. Hospital Course Patient was admitted for CHF exacerbation for which she was started on IV diuretics with consultation to cardiology. She was subsequently switched to by mouth with monitoring of I's and O as well as renal function. She was continued on her treatment for other chronic medical conditions. Patient will be discharged home on Lasix 40 mg twice a day. She will follow with cardiology regarding possible TAVR secondary to severe aortic stenosis. Prior to discharge , patient's condition improved and vital remained stable. Pt Condition on Discharge: Stable Discharge Disposition: Disch w/ Home Health Serv Discharge Time: > 30 minutes Discharge Instructions DIET: Follow Instructions for: Heart Healthy Diet Activities you can perform: Regular-No Restrictions Follow up Referrals: Cardiology - 3-[address] MANJIT TROY New Medications: Furosemide (Lasix) 40 Mg Tab 40 MG PO BID for chf, #60 TAB 0 Refills Continued Medications: Aspirin (Aspirin Low Dose) 81 Mg Chew 81 MG CHEW DAILY, TAB 0 Refills Atorvastatin (Atorvastatin) 80 Mg Tab 80 MG PO HS for Cholesterol Management, #30 TAB 0 Refills Clopidogrel (Clopidogrel) 75 Mg Tab 75 MG PO DAILY for Blood Clot Prevention, #30 TAB 0 Refills Donepezil (Donepezil) 10 Mg Tab 10 MG PO HS for Dementia, #30 TAB 0 Refills Exemestane (Exemestane) 25 Mg Tab 25 MG PO DAILY Flaxseed (Linseed) (Flaxseed Oil) 1,000 Mg Cap Unknown Dose PO DAILY Metoprolol Tartrate (Metoprolol Tartrate) 25 Mg Tab 12.5 MG PO BID, #60 TAB 0 Refills Multiple Vitamins W/ Minerals (Centrum Silver) 400 Mcg-250 Mcg Chw Unknown Dose PO DAILY Potassium Chloride Microencaps (Klor-Con M20) 20 Meq Tab 20 MEQ PO DAILY for Electrolyte Replacement, #30 TAB 0 Refills Discontinued Medications: Furosemide (Furosemide) 20 Mg Tab 20 MG PO DAILY, #30 TAB 0 Refills Sukhi Johnson MD Sep 05, 2017 11:41
== END 2017-09-05 12:30 | disposition home health service (06) | DRG 292 ==
LOC: NEPC 15:31 → NEDA 19:50 → NEPFCDU 21:40 → HCPC 08-31 17:29 → OBSVTOIN 09-02 14:38
PROVIDERS: ADMIT Hospitalist; ATTEND Hospitalist
DX: I13.0 Hypertensive heart and chronic kidney disease with heart failure and stage 1 through stage 4 chronic kidney disease, or unspecified chronic kidney disease (principal); N17.9 Acute kidney failure, unspecified; D69.6 Thrombocytopenia, unspecified; F03.90 Unspecified dementia, unspecified severity, without behavioral disturbance, psychotic disturbance, mood disturbance, and anxiety; I50.9 Heart failure, unspecified; I35.0 Nonrheumatic aortic (valve) stenosis; I44.7 Left bundle-branch block, unspecified; I25.10 Atherosclerotic heart disease of native coronary artery without angina pectoris; Z95.1 Presence of aortocoronary bypass graft; N18.9 Chronic kidney disease, unspecified; Z85.3 Personal history of malignant neoplasm of breast; Z87.891 Personal history of nicotine dependence; E78.5 Hyperlipidemia, unspecified; R74.8 Abnormal levels of other serum enzymes; Z95.0 Presence of cardiac pacemaker; Z82.49 Family history of ischemic heart disease and other diseases of the circulatory system; K76.1 Chronic passive congestion of liver; Z53.8 Procedure and treatment not carried out for other reasons
CPT/HCPCS: 71045; 71046; 76705; 80048; 80053; 82550; 82552; 83735; 83880; 84100; 84484; 85025; 85610; 85730; 93005; 96374; 96375; 96376; G0378; J1940

== ENCOUNTER 2017-09-11 10:19 | Inpatient (IN) | payer MEDICARE ==
[2017-09-11] MEDS ORDERED: SODIUM CHLOR 0.9% 1000 ML 1,000 ML IV (11:00)
[2017-09-11] MEDS ORDERED: INSULIN HUMAN REGULAR 1,000 UNITS/10 ML VIAL SQ (11:00)
[2017-09-11] MEDS ORDERED: LACTATED RINGER'S 1000 ML IV (11:00)
[2017-09-11] MEDS ORDERED: CHLORHEXIDINE GLUCONATE 2 % 1 PACK (2 CLOTHS) TOPICAL (11:00)
[2017-09-11] MEDS ORDERED: POVIDONE IODINE 5% (ANTISEPSIS KIT) EACH NARE (11:00)
[2017-09-11] MEDS ORDERED: METOPROLOL TARTRATE 25 MG TAB PO (11:00)
[2017-09-11] MEDS ORDERED: SODIUM CHLORID 0.9% 500 ML IV (11:00)
[2017-09-11] MEDS ORDERED: MUPIROCIN 2% OINT 1 APPLIC/GM SYRINGE EACH NARE (11:00)
[2017-09-11] MEDS: ASPIRIN 325 MG TAB PO (11:00)
[2017-09-11 11:01] LABS: AUTOMATED NEUTROPHIL # 6.7 TH/MM3 (1.8-7.7); BASOPHIL # 0.1 TH/MM3 (0-0.2); BASOPHIL % 0.9 % (0.0-2.0); EOSINOPHIL # 0.1 TH/MM3 (0-0.4); HEMATOCRIT 40.8 % (35.0-46.0); HEMO FLAGS DIFF FINAL; HEMOGLOBIN 13.5 GM/DL (11.6-15.3); LYMPH % 16.1 % (9.0-44.0); LYMPHOCYTE # 1.4 TH/MM3 (1.0-4.8); MEAN CELL VOLUME 92.1 FL (80.0-100.0); MEAN CORPUSCULAR HEMOGLOBIN 30.4 PG (27.0-34.0); MONO % 7.6 % (0.0-8.0); MONOCYTE # 0.7 TH/MM3 (0-0.9); NEUT % 74.4 % (16.0-70.0); PLATELET COUNT 183 TH/MM3 (150-450); RED BLOOD COUNT 4.43 MIL/MM3 (4.00-5.30); RED CELL DISTRIBUTION WIDTH 14.6 % (11.6-17.2)
[2017-09-11 11:11] LABS: APTT (PATIENT) 24.6 SEC (24.3-30.1); INTERNATIONAL NORMALIZED RATIO 1.1 RATIO; PROTHROMBIN TIME - PATIENT 11.3 SEC (9.8-11.6)
[2017-09-11 11:20] LABS: ANION GAP 8 MEQ/L (5-15); BICARBONATE 31.1 MEQ/L (21.0-32.0); BLOOD UREA NITROGEN 38 MG/DL (7-18); CALCIUM 9.3 MG/DL (8.5-10.1); CHLORIDE 102 MEQ/L (98-107); CREATININE 1.47 MG/DL (0.50-1.00); GLOMERULAR FILTRATION RATE 34 ML/MIN (>89); GLUCOSE,RANDOM 115 MG/DL (74-106); POTASSIUM 4.3 MEQ/L (3.5-5.1); SODIUM (NA) 141 MEQ/L (136-145)
[2017-09-11] MEDS: POVIDONE IODINE 5% (ANTISEPSIS KIT) 4 APPLICATIONS EACH NARE (11:26)
[2017-09-11] MEDS: CHLORHEXIDINE GLUCONATE 2 % 1 PACK (2 CLOTHS) TOPICAL (11:26)
[2017-09-11] MEDS ORDERED: ROCURONIUM INJ 50 MG/5 ML SYRINGE IV PUSH (12:00)
[2017-09-11] MEDS ORDERED: PHENYLEPH/NS 1000 MCG/10 ML SYR IV (12:00)
[2017-09-11] MEDS ORDERED: LIDOCAINE HCL 1% PF 5 ML SYRINGE OTHER (12:00)
[2017-09-11] MEDS ORDERED: PROPOFOL 200 MG/20 ML AMP IV (12:00)
[2017-09-11] MEDS ORDERED: SODIUM CHLORIDE (12:03)
[2017-09-11] MEDS ORDERED: HEPARIN (12:03)
[2017-09-11] MEDS ORDERED: MIDAZOLAM HCL 2 MG/2 ML VIAL (12:38)
[2017-09-11] MEDS ORDERED: fentaNYL CITRATE 250 MCG/5 ML AMP (12:41)
[2017-09-11] MEDS ORDERED: CUSTODIOL HTK IRR SOLN 0 ML (13:40)
[2017-09-11] MEDS: ceFAZolin 2 GM PREMIX 50 ML IV (14:25)
[2017-09-11] MEDS: HEPARIN SODIUM - IV 10,000 UNITS/10 ML VIAL (14:52)
[2017-09-11] MEDS: PROTAMINE SULFATE 50 MG/5 ML VIAL (15:40)
[2017-09-11] MEDS: IOHEXOL 300 MG/ML 100 ML BTL (for Rad CT) IVCONTRAST (15:46)
[2017-09-11] MEDS: SODIUM CHLOR 0.9% 1000 ML INJ 1,000 ML IV (16:01)
[2017-09-11] MEDS ORDERED: GLUCAGON 1 MG/ML VIAL OTHER (16:15)
[2017-09-11] MEDS ORDERED: MISC INFORMATION OTHER (16:15)
[2017-09-11] MEDS ORDERED: ATROPINE SULFATE 1 MG/ML VIAL IV PUSH (16:15)
[2017-09-11] MEDS ORDERED: DEXTROSE 50% IN WATER 50 ML VIAL(D50) IV PUSH (16:15)
[2017-09-11] MEDS: INSULIN NovoLIN REGULAR SUPPLEMENTAL SCALE SQ ×2 (17:00→21:00)
[2017-09-11] MEDS: METOPROLOL TARTRATE 25 MG TAB PO (21:00)
[2017-09-11] MEDS ORDERED: PILL SPLITTER OTHER (21:00)
[2017-09-11] MEDS: ATORVASTATIN 80 MG TAB PO (21:58)
[2017-09-11] MEDS: FUROSEMIDE 40 MG TAB PO (21:59)
[2017-09-11] MEDS: DONEPEZIL HCL 5 MG TAB PO (21:59)
[2017-09-12 04:30] LABS: ANION GAP 6 MEQ/L (5-15); BLOOD UREA NITROGEN 29 MG/DL (7-18); CALCIUM 7.8 MG/DL (8.5-10.1); CHLORIDE 107 MEQ/L (98-107); CREATININE 1.15 MG/DL (0.50-1.00); GLOMERULAR FILTRATION RATE 45 ML/MIN (>89); GLUCOSE,RANDOM 89 MG/DL (74-106); POTASSIUM 4.3 MEQ/L (3.5-5.1); SODIUM (NA) 143 MEQ/L (136-145)
[2017-09-12 04:45] LABS: HEMATOCRIT 32.7 % (35.0-46.0); HEMOGLOBIN 11.1 GM/DL (11.6-15.3); MEAN CELL VOLUME 89.2 FL (80.0-100.0); MEAN CORPUSCULAR HEMOGLOBIN 30.2 PG (27.0-34.0); MEAN CORPUSCULAR HGB CONC 33.9 % (32.0-36.0); MEAN PLATELET VOLUME 9.1 FL (7.0-11.0); PLATELET COUNT 129 TH/MM3 (150-450); RED BLOOD COUNT 3.66 MIL/MM3 (4.00-5.30); REVIEW FLAG FINAL; WHITE BLOOD COUNT 8.3 TH/MM3 (4.0-11.0)
[2017-09-12] MEDS: INSULIN NovoLIN REGULAR SUPPLEMENTAL SCALE SQ ×3 (08:00→17:00)
[2017-09-12] MEDS ORDERED: EXEMESTANE 25 MG PO (09:00)
[2017-09-12] MEDS: METOPROLOL TARTRATE 25 MG TAB PO (09:00)
[2017-09-12] MEDS: CLOPIDOGREL 75 MG TAB PO (09:13)
[2017-09-12] MEDS: ASPIRIN 81 MG CHEW TAB PO (09:13)
[2017-09-12] MEDS: FUROSEMIDE 40 MG TAB PO (09:13)
[2017-09-12] MEDS: MULTIVITAMIN-OPHTHALMIC 1 TAB PO (09:15)
[2017-09-12] MEDS: POTASSIUM CHLORIDE 20 MEQ CONTROLLED RELEASE TAB PO (09:15)
[2017-09-12] MEDS: ACETAMINOPHEN 325 MG TAB PO (09:15)
== END 2017-09-12 18:15 | disposition home or self-care (01) | DRG 266 ==
LOC: HSDI 10:19 → HCPC 09-12 11:20 → HDIC 10:28 → HCVI 16:34
PROC: 02RF38Z Replacement of Aortic Valve with Zooplastic Tissue, Percutaneous Approach (ICD-10-PCS; principal; 2017-09-11 13:40)
PROC: 027F3ZZ Dilation of Aortic Valve, Percutaneous Approach (ICD-10-PCS; 2017-09-11 13:40)
PROC: B3101ZZ Fluoroscopy of Thoracic Aorta using Low Osmolar Contrast (ICD-10-PCS; 2017-09-11 13:40)
DX: I35.0 Nonrheumatic aortic (valve) stenosis (principal); I50.23 Acute on chronic systolic (congestive) heart failure; Z95.1 Presence of aortocoronary bypass graft; F03.90 Unspecified dementia, unspecified severity, without behavioral disturbance, psychotic disturbance, mood disturbance, and anxiety; I11.0 Hypertensive heart disease with heart failure; I25.10 Atherosclerotic heart disease of native coronary artery without angina pectoris; Z95.0 Presence of cardiac pacemaker; Z85.3 Personal history of malignant neoplasm of breast; Z90.10 Acquired absence of unspecified breast and nipple; E78.5 Hyperlipidemia, unspecified; I65.29 Occlusion and stenosis of unspecified carotid artery; Z00.6 Encounter for examination for normal comparison and control in clinical research program
CPT/HCPCS: 33210; 33361; 36430; 80048; 85002; 85002-91; 85025; 85027; 85610; 85730; 86850; 86900; 86901; 86902; 86920; 86921; 86922; 92986; 93005; 93308; 94150; 97162-GP; 97167-GO